=== PATIENT | male | born 1995 | race Caucasian/White ===

== ENCOUNTER 2024-12-18 21:12 | Emergency (ER) | payer OTHER, SELFPAY ==
--- NOTE | ~2024-12-18 | XR_ITS ---
Portable chest x-ray Comparison: None Clinical History: Chest pain Findings: Lungs are clear, without focal consolidation or pleural effusion. Probable COPD. Cardiome diastinal silhouette is unremarkable. Bones and soft tissues are unremarkable. Impression: Clear lungs. COPD. Reviewed, dictated and finalized at location . Impression: Clear lungs. COPD.
--- OUTSIDE RECORDS SUMMARY | 2024-12-18 21:15 | XMS_ITS | Continuity of Care Document ---
Author Name [facility] Organization [facility] Care Team Providers Care Test Driller Name Role Phone [facility] Unavailable Unavailable Problems Combined list of problems from Department of Defense and Veterans Affairs facilities. It does not include entries that were removed or entered in error. Problem Status Onset Date Problem Type Date of Resolution Comments Source Schizophrenia, unspecified Active 01/18/2019 Condition [facility] Schizoaffective disorder Active Condition [facility] CASE MANAGEMENT CONTINUE Active Condition [facility] Mixed obsessional thoughts and acts Active Condition [facility] Major depressive disorder, recurrent, severe with psychotic symptoms Active Condition [facility] Allergies, Adverse Reactions, Alerts Combined list of allergies from Department of Defense and Veterans Affairs facilities. It does not include entries that were removed or entered in error. Substance Category Reaction Severity Reaction type Status Date Reported Comments Source No Known Allergies Drug allergy (disorder) active 9 [place], [place] Immunizations Combined list of available immunizations from the Department [facility] and [facility] facilities. Immunization Series Date Given Administered By Site Reaction Lot Number CVX Code Drug Certified Neurodiagnostic Technologist Status Comments Source COVID-19 (MODERNA), MRNA, LNP-S, PF, 100 MCG/0.5 ML DOSE 2 2020 207 complet ed MOD; [id number]; 1 [facility] COVID-19 (MODERNA), MRNA, LNP-S, PF, 100 MCG/0.5 ML DOSE 1 2020 207 complet ed MOD; [id number]; 1 [facility] TDAP 2019 115 complet ed Right Deltoid [facility] INFLUENZA, UNSPECIFIED FORMULATION 2018 88 complet ed per [facility] L influenza, injectable, quadrivalent, contains preservative 1 2018 [id number] 158 Seqirus (SEQ) complet ed influenza , injectabl e, quadrival ent, contains preservat konstantin DoD Seasonal, trivalent, recombinant, injectable influenza vaccine, preservative free 1 2018 ANGELA ALVES [id number] [facility] (SKB) complet ed Seasonal, trivalent , recombina nt, injectabl e influenza vaccine, preservat konstantin free DoD Seasonal, quadrIvalent, recombinant, injectable influenza vaccine, preservative free 1 2017 ANNAMARIE LYN [id number] 185 Seqirus (SEQ) complet ed Seasonal, quadrIval ent, recombina nt, injectabl e influenza vaccine, preservat konstantin free DoD yellow fever vaccine 1 2017 [id number] Sanofi Pasteur (PMC) complet ed yellow fever vaccine DoD vaccinia (smallpox) vaccine 1 2017 [id number] 75 (JOHN) complet ed vaccinia (smallpox ) vaccine DoD anthrax vaccine 3 2017 ANNAMARIE LYN [id number] 24 [facility] ([place]) complet ed anthrax vaccine DoD typhoid Vi capsular polysaccharid e vaccine 1 2017 ANNAMARIE LYN [id number] Sanofi Pasteur (PMC) complet ed typhoid Vi capsular polysacch aride vaccine DoD Human rabies vaccine from Chicken fibroblast culture 1 2017 ANNAMARIE LYN [id number] 176 [facility] ([facility]) complet ed Human rabies vaccine from Chicken fibroblas t culture DoD rabies vaccine, for intramuscular injection RETIRED CODE 2 2017 NEGRA OLSON P [id number] 18 Vishnuine (SKB) complet ed rabies vaccine, for intramusc ular injection RETIRED CODE DoD [place] Encephalitis vaccine for intramuscular administratio n 2 2017 NEGRA OLSON [id number] 134 [employer] (INT) complet ed [place] Encephali tis vaccine for intramusc ular administr ation DoD rabies vaccine, for intramuscular injection RETIRED CODE 1 2016 NEGRA OLSON [id number] 18 Vishnuine (SKB) complet ed rabies vaccine, for intramusc ular injection RETIRED CODE DoD anthrax vaccine 2 2016 NEGRA OLSON [id number] 24 [facility] ([place]) complet ed anthrax vaccine DoD [place] Encephalitis vaccine for intramuscular administratio n 1 2016 NEGRA OLSON [id number] [address] [facility] Biomedical (INT) complet ed [place] Encephali tis vaccine for intramusc ular administr ation DoD Influenza, injectable, Madin Sibley Canine Kidney, preservative free, quadrivalent 1 2016 [id number] 171 Seqirus (SEQ) comple t ed Influenza , injectabl e, Madin Iris Canine Kidney, preservat konstantin free, quadrival ent DoD influenza, injectable, quadrivalent, contains preservative 1 2015 [id number] 158 Seqirus (SEQ) complet ed influenza , injectabl e, quadrival ent, contains preservat konstantin DoD anthrax vaccine 1 2015 [id number] 24 [facility] ([place]) complet ed anthrax vaccine DoD typhoid Vi capsular polysaccharid e vaccine 1 2015 [id number] 101 Sanofi Pasteur (PMC) complet ed typhoid Vi capsular polysacch aride vaccine DoD hepatitis B vaccine, adult dosage 3 2014 [id number] 43 SmithKline (SKB) complet ed hepatitis B vaccine, adult dosage DoD Influenza, seasonal, injectable, preservative free 1 2014 [id number] 140 Spirus MedicalKline (SKB) complet ed Influenza , seasonal, injectabl e, preservat konstantin free DoD hepatitis B vaccine, pediatric or pediatric/ado lescent dosage 2 2014 [id number] 08 Cerus Corporationine (SKB) complet ed hepatitis B vaccine, pediatric or pediatric /adolesce nt dosage DoD measles, mumps and rubella virus vaccine 1 2014 UNK 03 Unknown (UNK) Not Given measles, mumps and rubella virus vaccine DoD varicella virus vaccine 1 2014 UNK 21 Unknown (UNK) Not Given varicella virus vaccine DoD hepatitis A vaccine, adult dosage 1 2014 UNK 52 Unknown (UNK) Not Given hepatitis A vaccine, adult dosage DoD hepatitis B vaccine, pediatric or pediatric/ado lescent dosage 1 2014 [id number] 08 SmithKline (SKB) complet ed hepatitis B vaccine, pediatric or pediatric /adolesce nt dosage DoD poliovirus vaccine, inactivated 1 2014 [id number] 10 Sanofi Pasteur (PMC) complet ed polioviru s vaccine, inactivat ed DoD meningococcal polysaccharid e (groups A, C, Y and W-135) diphtheria toxoid conjugate vaccine (MCV4P) 1 2014 [id number] 114 Sanofi Pasteur ([facility]) complet ed meningoco ccal polysacch aride (groups A, C, Y and W-135) diphtheri a toxoid conjugate vaccine (MCV4P) DoD tetanus toxoid, reduced diphtheria toxoid, and acellular pertu is vaccine, adsorbed 1 2014 [id number] 115 Sanofi Pasteur (PMC) complet ed tetanus toxoid, reduced diphtheri a toxoid, and acellular pertussis vaccine, adsorbed DoD Influenza, seasonal, injectable, preservative free 1 2014 [id number] 140 Novartis mYwindow Arturo. (NOV) complet ed Influenza , seasonal, injectabl e, preservat konstantin free DoD Adenovirus, type 4 and type 7, live, oral 1 2014 [id number] 143 HealPay (BRR) complet ed Adenoviru s, type 4 and type 7, live, oral DoD Encounters Combined list of: 1) Encounters from Department of Veterans Affairs facilities going backup to the last 18 months, not all VA inpatient encounters are included; 2) Encounters from the Department of Defense facilities going backup to 280 months. Location Location Details Encounter Type Encounter Number Reason For Visit Attending Provider ADM Date DC Date Status Disposition Source JASMIN Downey(IEP Soldiers Initial Entry) OUTPATIENT [id number] Notes Entered by: KERA LOPEZ J 17 Oct 2014 0506 ------- ------- ------- ------- -- [id number] B3 DAY 1 DONTAE REYES 10/17 Released w/o Limitations [facility] JASMIN Elder([place] Initial Entry) JASMIN Downey(IEP Optometry ) OUTPATIENT [id number] LYDIA KEMP 10/17 Released w/o Limitations JASMIN Downey(IEP Optomet ry) [facility] JASMIN Elder(IEP Hearing Conservat ion Exam) OUTPATIENT [id number] JOSIAH COFFEY 10/18 Released w/o Limitations [facility] [place] at[place] Exam) [facility] [place] OUTPATIENT [id number] Notes Entered by: KERA LOPEZ J 19 Oct 2014 0408 ------- ------- ------- ------- -- [id number] B3 3 VALERIE DINEROAlison 10/19 Released w/o Limitations [facility] [place] [facility] [place] OUTPAT[place] [id number] Notes Entered by: Radha MURRIETA 10 Nov 2014 0710 ------- ------- ------- ------- -- KNEES; VICENTE CASAREZ 11/10 Released w/o Limitations [facility] [place] [facility] [place] OUTPAT[place] [id number] Notes Entered by: Radha MURRIETA 24 Nov 2014 0950 ------- ------- ------- ------- -- KNEES. ERIKA SOTO 11/24 Released with Work/Duty Limitations [facility] [place] Er [place] [facility] [place] OUTPATIENT [id number] Notes Entered by: MAGGIE ORTIZ 24 Dec 2014 0502 ------- ------- ------- ------- -- E CO 3-10 DONTAE MILLER 12/24 [facility] [place] [facility] [facility] [facility] [place] [facility] OUTPATIENT [id number] Notes Entered by: WANDA BELLE 25 Jul 2015 0518 ------- ------- ------- ------- -- Hep ALLI SILVA 07/25 Released w/o Limitations [place] [facility] [id number] Notes Entered by: MARIA ELENA ORDAZ 26 Sep 2015 0840 ------- ------- ------- ------- -- Sleep Issues DOROTHY JO 09/26 Sick at Home/Quarter s [place] [facility] [employer] [place] OUTPATIENT [id number] annual ROSE VELASQUEZ 12/16 Released w/o Limitations [facility] [employer] [place] ) [facility] [employer] [place] OUTPATIENT [id number] SAADIA BONILLA 12/23 Released w/o Limitations [facility] [employer] [place] [place] [facility] [employer] [place] [id number] SHARON HERNANDEZ 11/02 Released w/o Limitations [facility] [employer] [place] [facility] [place] OUTPAT[place] [id number] post deploy GINETTE CAMPBELL 11/03 Released w/o Limitations [facility] [employer] [place] [place] [facility] [employer] [place] OUTPATIENT [id number] EMMA SHANKAR 03/10 Released w/o Limitations [facility] [employer] [place] [place] [facility], [place] OUTPATIENT [id number] 2BN:NEGRA PETERSEN P 07/19 Released w/o Limitations [facility] [place]) [facility] [place] OUT[place] [id number] Notes Entered by: NEGRA OLSON 17 Nov 2017 1534 ------- ------- ------- ------- -- 2BN:NEGRA PETERSEN 11/17 [facility]ased w/o Limitations [facility] [place] [place] OUT[place] [id number] 2bn-SLE EP ISSUES CHANELLE ROSENBERG 11/18 Released w/o Limitations [facility] [place]) [facility], [place] [id number] 2bn; ANNAMARIE Leach 01/25 Released w/o Limitations [facility] [place]) [facility], [place] [id number] annual STARR GATES 02/03 Released w/o Limitations [facility] [employer] [place] ) [facility], [place] [id number] Notes Entered by: ANNAMARIE LYN 15 Jun 2018 0803 ------- ------- ------- ------- -- 2bn; ANNAMARIE Leach 06/15 Released w/o Limitations [facility] [place]) [facility], [employer] [place] OUTPATIENT [id number] Notes Entered by: ANNAMARIE LYN T 21 Jun 2018 1459 ------- ------- ------- ------- -- YESSENIA Matthews 06/21 Released w/o Limitations [facility] [employer] [place]) [facility] [place] TELE CONSULT [id number] ANTONIO GREENFIELD Aminta 06/24 [facility] [place]) [facility], [place] AD DIRECT TO [facility] NEVER TRNF TO [facility] [id number] ABSENT, SICK 07/19 RETURNED TO DUTY [facility] [place] [facility] [employer] [place], [place] OUTPATIENT [id number] Notes Entered by: ANNAMARIE LYN 03 Aug 2018 1011 ------- ------- ------- ------- -- 2bn; Psych CHANELLE ROSENBERG 08/03 Released w/o Limitations [facility] [place]) [place] [address] AD DIRECT TO [facility] NEVER TRNF TO [facility] [id number] HIWOT SYLVESTER 08/27 RETURNED TO DUTY [facility] [place] [address] [facility] DIRECT TO [facility] FROM OTHER THAN ER OR APU [id number] MICHELINE CASTILLO 10/26 RETURNED TO DUTY [facility] INPATIENT [id number] ANGELA Olivo 10/27 Inpatient- Still a Patient [facility]( Immuniz ation Clinic Be) [facility](In t Med CL [facility] Medical Home BE) OUTPATIENT [id number] [facility] FOR PLASTIC SURGERY RODOLFO MACIEL 11/28 Released w/o Limitations [facility]( Int Med CL [facility] Medical Home BE) [facility] t Med [facility]) OUTPATIENT [id number] [facility] FOR BREAST CARE RODOLFO MACIEL 12/01 Released w/o Limitations [facility]( Int Med CL D Medical Home BE) [facility](Br east Care [place]) OUTPATIENT [id number] Gynecom astia, pl eval/tr eat AMBROSIO, KERRY TURZA 12/06 Released w/o Limitations [facility]( Breast Care [place] [facility]) [facility](EE G Clinic [place]) OUTPATIENT [id number] proc/ee g JUNI EDEN 12/07 Released w/o Limitations [facility]( EEG Clinic [place] [facility]) [facility](Ne urology Clinic [place]) OUTPATIENT [id number] STEVEN APONTE 12/07 Released w/o Limitations [facility]( Neurolo gy Clinic [facility] [facility]) [facility](In tegrative Hlth & Well BE) OUTPATIENT [id number] pcs group TRINITY SHAW 12/15 Released w/o Limitations [facility]( Integra tive Hlth & Well BE) [facility](Nu trition Clinic [place]) OUTPATIENT [id number] BEHAVIO RAL NUTRITI ON DOMINGA CARR 12/23 Released w/o Limitations [facility]( Nutriti on Clinic [place]) [place]) [place] [id number] 2BN-dis charge follow up PRESLEY ZAMARRIPA 01/04 Released [place] Limitations [place]) OUTPATIENT [id number] Notes Entered by: MEEK MORILLO 19 Jan 2019 1535 ------- ------- ------- ------- -- MEB Review SANJAY MORILLO BAKARI 01/19 Released w/o Limitations [facility] [place]) [facility] [place] talker Clinic) TELE CONSULT [id number] Notes Entered by: KATHY ZAMARRIPA 23 Jan 2019 1558 ------- ------- ------- ------- -- MEB PRESLEY Cho 01/23 [facility] [employer] [place] [facility], [place] Providers ) OUTPATIENT [id number] [place] AVELINO FELIZ 02/02 Released with Work/Duty Limitations [facility] [employer] [place] [facility], [place]([facility] Client Support Professional) OUTPATIENT [id number] Notes Entered by: OLESYA NJ 13 Feb 2019 1008 ------- ------- ------- ------- -- initial risk assessm ent OLESYA NJ 02/13 Released with Work/Duty Limitations [facility] [employer] [place] Client [place] ) [facility], [place]([facility]) OUTPATIENT [id number] PCM OLESYA SANTIZO 02/13 Released w/o Limitations [facility] [employer] [place] ior [facility]) [facility], [place]([facility] Client Support Professional) OUTPATIENT [id number] Notes Entered by: OLESYA NJ 13 Feb 2019 1128 ------- ------- ------- ------- -- initial intake with NCM OLESYA NJ 02/13 Released with Work/Duty Limitations [facility] [place] Client Support Professional ) [facility] [employer] [place] Client [place] OUT[place] [id number] weekly follow up with NCOLESYA BEATTY 02/14 Released with Work/Duty Limitations [facility] [employer] [place] [facility] [employer] [place] [id number] RA/NOM/ COMPANY Tom GREGOR RAMIREZINE NOEL 02/17 Released with Work/Duty Limitations [facility] [employer] [place] [facility] [employer] [place] OUT[place] [id number] Notes Entered by: Radha WIGGINS 17 Feb 2019 1449 ------- ------- ------- ------- -- WTU NCAminta berrios Inspect HUSAM Up 02/17 Released with Work/Duty Limitations [facility] [employer] [facility] [employer] [place] [id number] OT Intake YAMEL BAER 02/22 Released w/o Limitations [facility] [employer] [facility] [employer] [place] [id number] weekly follow up with OLESYA RYAN 02/22 Released with Work/Duty Limitations [facility] [employer] [place] [facility] [employer] [place] [id number] OT [facility] MARKOS GARDINER 02/27 Released w/o Limitations [facility] [employer] [facility] [employer] [place] [id number] INTAKE 02/13/19 HERMILA VALENCIA I 02/28 Released w/o Limitations [facility] [employer] [place] [facility] [employer] [place] TELE CONSULT [id number] Notes Entered by: OLESYA NJ 01 Mar 2019 1043 ------- ------- ------- ------- -- medicat ion refill needed OLESYA NJ 03/01 Referred for Appointment [facility] [employer] [place] [facility] [employer] [place] [id number] MED BRIEF HERMILA VALENCIA I 03/02 Released w/o Limitations [facility] [employer] [place] [facility] [employer] [place] [id number] HR APPT HERMILA VALENCIA I 03/06 Released w/o Limitations [facility] [employer] [place] [facility] [employer] [place] [id number] Notes Entered by: KAMRAN HERNANDEZ 06 Mar 2019 1352 ------- ------- ------- ------- -- SARA intake DENA HERNANDEZ 03/06 Released with Work/Duty Limitations [facility] [employer] [place] [facility] [employer] [place] [id number] Notes Entered by: OLESYA NJ 09 Mar 2019 0702 ------- ------- ------- ------- -- FTR at 1330 OLESYA NJ 03/09 Released with Work/Duty Limitations [facility] [employer] [place] [facility] [employer] [place] [id number] weekly follow up with NCM OLESYA NJ 03/09 Released with Work/Duty Limitations [facility] [employer] [place] [facility] [employer] [place] [id number] HR APPT HERMILA VALENCIA I 03/10 Released w/o Limitations [facility] [employer] [place] [facility] [employer] [place] [id number] MONTHLY APPT JAMES CHUCKELIAS COHEN 03/15 Released with Work/Duty Limitations [facility] [employer] [facility] [employer] [place] [id number] WTU NCM WEEKLY F/U DUGYON, BRAEDEN D 03/17 Released with Work/Duty Limitations [facility] [employer] [facility] [employer] [place] [id number] WEEKLY HERMILA VALENCIA I 03/21 Released w/o Limitations [facility] [employer] [place] [facility] [employer] [place]) [place] [id number] WTU NCM WEEKLY F/U DUGYON, BRAEDEN D 03/23 Released with Work/Duty Limitations [facility] [employer] [place] [facility] [employer] [place]) [place] [id number] WTU NCM WEEKLY F/U DUGYON, BRAEDEN D 03/29 Released with Work/Duty Limitations [facility] [employer] [place] [facility] [employer] [place]) [place] [id number] WTU NCM WEEKLY F/U DUGYON, BRAEDEN D 04/04 Released with Work/Duty Limitations [facility] [employer] [place] [facility] [employer] [place] [id number] MONTHLY APPT CHUCK RAMIREZ 04/13 Released w/o Limitations [facility] [employer] [place] [facility] [employer] [place] [id number] XWX WTB NCM GINA XIONG 04/13 Released with Work/Duty Limitations [facility] [employer] [place] [facility] [employer] [place]) [place] [id number] WTU NCM WEEKLY F/U DUGYON, BRAEDEN D 04/20 Released with Work/Duty Limitations [facility] [employer] [place] [facility] [employer] [place]) [place] [id number] WTU NCM WEEKLY F/U DUGYON, BRAEDEN D 04/27 Released with Work/Duty Limitations [facility] [employer] [place] [facility] [employer] [place] [id number] HR APPT HERMILA VALENCIA I 04/28 Released w/o Limitations [facility] [employer] [place] [facility] [employer] [place] [id number] WTU NCM WEEKLY F/U DUGYON, BRAEDEN D 05/04 Released with Work/Duty Limitations [facility] [employer] [place] [facility] [employer] [place] [id number] HR APPT HERMILA VALENCIA I 05/04 Released w/o Limitations [facility] [employer] [place] [place] [facility] [employer] [place] [id number] Notes Entered by: FARHAT MEDELLIN 08 May 2019 1448 ------- ------- ------- ------- -- B/P Check CHUCK RAMIREZ 05/08 Released w/o Limitations [facility] [employer] [place] [facility] [employer] [place]) OUT[place] [id number] WTU NCM WEEKLY F/U BRAEDEN NUÑEZ D 05/11 Released with Work/Duty Limitations [facility] [employer] [place] [facility] [employer] [place] [id number] HR APPT HERMILA VALENCIA I 05/12 Released w/o Limitations [facility] [employer] [place] [facility] [employer] [place] [id number] MONTHLY CHUCK RAMIREZ 05/17 Released with Work/Duty Limitations [facility] [employer] [place] [place] [facility] [employer] [place] OUTPATIENT [id number] WTU NCM WEEKLY F/U BRAEDEN NUÑEZ D 05/18 Released with Work/Duty Limitations [facility], [employer] [facility], [employer] [place] TELE CONSULT [id number] Notes Entered by: Sugar RAMIREZ 23 May 2019 1321 ------- ------- ------- ------- -- SM with psychia tric symptom s c/w schizop hrenia request ing imaging , CHUCK RAMIREZ 05/23 [facility], [employer] [facility]) [facility], [employer] [place] OUTPATIENT [id number] WTU NCM WEEKLY F/U DUGYON, BRAEDEN D 05/25 Released with Work/Duty Limitations [facility], [employer] [facility], [employer] [place] OUTPATIENT [id number] WTU NCM WEEKLY F/U DUGYON, BRAEDEN D 05/29 Released with Work/Duty Limitations [facility], [employer] [facility], [employer] [place] OUTPATIENT [id number] MONTHLY APPT CHUCK RAMIREZ 06/01 Released with Work/Duty Limitations [facility], [employer] [facility], [employer] [place] OUTPATIENT [id number] WTU NCM WEEKLY F/U DUGYON, BRAEDEN D 06/06 Released with Work/Duty Limitations [facility], [employer] [facility], [employer] [place] OUTPATIENT [id number] WTU NCM WEEKLY F/U DUGYON, BRAEDEN D 06/12 Released with Work/Duty Limitations [facility], [employer] [facility], [employer] [place] OUTPATIENT [id number] WTU NCM WEEKLY F/U DUGYON, BRAEDEN D 06/19 Released with Work/Duty Limitations [facility], [employer] [facility], [employer] [place] OUTPATIENT [id number] WTU NCM WEEKLY F/U DUGYON, BRAEDEN D 06/27 Released with Work/Duty Limitations [facility], [employer] [facility], [employer] [place] OUTPATIENT [id number] WTU NCM WEEKLY F/U BRAEDEN NUÑEZ 07/04 Released with Work/Duty Limitations [facility], [employer] [facility], [employer] [place] [id number] Notes Entered by: KAMRAN HERNANDEZ 04 Jul 2019 1509 ------- ------- ------- ------- -- SARA re-DENA Olivier 07/04 Released with Work/Duty Limitations [facility], [employer] [facility], [employer] [place] [id number] Notes Entered by: FARHAT MEDELLIN 10 Jul 2019 0955 ------- ------- ------- ------- -- Monthly OLESYA VASQUEZ 07/10 Released w/o Limitations [facility], [employer] [facility], [employer] [place] [id number] WTU NCM WEEKLY F/U BRAEDEN NUÑEZ 07/11 Released with Work/Duty Limitations [facility], [employer] [facility], [employer] [place] [id number] HR APPT HERMILA VALENCIA I 07/12 Released w/o Limitations [facility], [employer] [place] [facility], [employer] [place] [id number] annual OLGA PEREZ 07/12 Released w/o Limitations [facility], [employer] [facility], [employer] [place] [id number] HR APPT HERMILA VALENCIA John 07/14 Released w/o Limitations [facility], [employer] [facility], [employer] [place]) OUT[place] [id number] NCM [facility] 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 SHAYNE OSORIO GRECIA 07/14 Released with Work/Duty Limitations [facility], [employer] [facility], [employer] [place] OUTPATIENT [id number] WTU NCM WEEKLY F/U DUGYON, BRAEDEN D 07/17 Released with Work/Duty Limitations [facility], [employer] [facility], [employer] [place] OUTPATIENT [id number] WTU NCM WEEKLY F/U DUGYON, BRAEDEN D 07/24 Released with Work/Duty Limitations [facility], [employer] [facility], [employer] [place] [id number] WTU NCM WEEKLY F/U DUGYON, BRAEDEN D 07/31 Released with Work/Duty Limitations [facility], [employer] [facility] [employer] [place] OUTPATIENT [id number] Notes Entered by: FARHAT MEDELLIN 07 Aug 2019 1232 ------- ------- ------- ------- -- Monthly OLESYA VASQUEZ 08/07 Released w/o Limitations [facility], [employer] [facility], [employer] [place] OUTPATIENT [id number] WTU NCM WEEKLY F/U DUGYON, BRAEDEN D 08/09 Released with Work/Duty Limitations [facility], [employer] [facility] Outpatient Encounter [id number] 12/05 [facility] Procedures Combined list of: 1) Procedures from Department of [facility] Affairs facilities going back up to thelast 18 months, not all VA non-surgical procedures are included; 2) All procedures from the Department of Defense facilities. Procedure Procedure Type Code Date Ethel Gilbert e Coordinated care fee, maintenance rate 019 MICHELLE PARK DoD Case Management, each 15 minutes 019 MICHELLE PARK AT# 8x2 Tx team update DoD Coordinated care fee, maintenance rate 019 MICHELLE PARK DoD Case Management, each 15 minutes 019 MICHELLE PARK AT#11 F/U single service In-pt Update DoD Coordinated care fee, maintenance rate 019 MICHELLE PARK Case Management, each 15 minutes 019 MICHELLE PARK AT#4 In-Pt F/U weekly update DoD Coordinated care fee, maintenance rate 019 MICHELLE PARK DoD Coordinated care fee, maintenance rate 019 MICHELLE PARK DoD Case Management, each 15 minutes 019 MICHELLE PARK AT# 7 Multi-D conf Phone/con; AT# 188 VMM left DoD Case Management, each 15 minutes 019 MICHELLE PARK AT# 11 F/U Single Service In-Patient update DoD Coordinated care fee, maintenance rate 019 MICHELLE PARK DoD Case Management, each 15 minutes 019 MICHELLE PARK AT# 8x2 Tx team update DoD Coordinated care fee, maintenance rate 019 MICHELLE PARK DoD Case Management, each 15 minutes 019 MICHELLE PARK AT# 11 F/U Single service [facility] [place]Note 2] Update DoD Coordinated care fee, maintenance rate 019 MICHELLE PARK DoD Case Management, each 15 minutes 019 MICHELLE PARK AT# 11 F/U single service In-Pt DoD Coordinated care fee, maintenance rate 019 MICHELLE PARK Case Management, each 15 minutes 019 MICHELLE PARK AT#11 f/u single service; AT#17 Pt teaching complex Hospital admission Laine Brentwood AT#9 Coordination of Services [facility] Coordinated care fee, maintenance rate 019 MICHELLE PARK Case Management, each 15 minutes 018 MICHELLE PARK AT# 10 Coordination of Complex Service L.R. Admission packet; AT# 18 Email submitted Referrals FC-55 Ursula Coordinated care fee, maintenance rate 018 MICHELLE PARK DoD Coordinated care fee, maintenance rate 018 JOYCE TORRES Case Management, each 15 minutes 018 MICHELLE PARK AT# 8x2 Tx team update Ursula Coordinated care fee, maintenance rate 018 MICHELLE PARK Case Management, each 15 minutes 018 MICHELLE PARK AT# 8x2 Tx team update; AT# 9 Coordination of Psychiatry Intake appt DoD Coordinated care fee, maintenance rate 018 MICHELLE PARK [facility] Psychiatric Evaluation Comprehensive Examination Psychiatric Evaluation Comprehensive Examination [id number] BLAYNE MORALES Case Management, each 15 minutes 018 MICHELLE PARK AT#9 Coordination of Service Hosp D/C appt; AT# 11 F/U In-Pt update [facility] Coordinated care fee, maintenance rate 018 MICHELLE PARK [facility] Coordinated care fee, maintenance rate 018 MICHELLE PARK Case Management, each 15 minutes 018 MICHELLE PARK AT#9 Coordination of Service In-Pt Admission [facility] DoD Immunization Administration One Vaccine Immunization Administration One Vaccine 44909 018 ANNAMARIE LYN [facility] Threshold Audiogram (Pure Tone) Automated Threshold Audiogram (Pure Tone) Automated 0208T 018 STARR GATES DoD Immunization Administration One Vaccine Immunization Administration One Vaccine 84744 018 ANNAMARIE LYN [facility] Immunization Administration Each Additional Vaccine Immunization Administration Each Additional Vaccine 76990 06/05/2 018 EBONIMARVNahomy OLSON [facility] Typhoid Vaccine Vi Capsular Polysaccharide, For Intramus Use Typhoid Vaccine Vi Capsular Polysaccharide, For Intramus Use 56313 018 EBONI ANNAMARIE OLSON Typhoid, ViCPs; Series #: 1; .5 mL; IM; Left Arm; Mfg: Sanof[employer] Pasteur; Lot: [id number]; VIS given (Abdirashid: 01/19/12). [facility] Rabies Vaccine For Intramuscular Use Rabies Vaccine For Intramuscular Use 34147 018 RESHMAANNAMARIE QUINTERO WESLEY Rabies - IM fibroblast culture; Series #: 1; 1.0 mL; IM; Left Arm; Mfg: Legend3D; Lot: [id number]; VIS given (Abdirashid: 05/28/2009). [facility] Psychiatric Evaluation Comprehensive Examination Psychiatric Evaluation Comprehensive Examination 71058 018 BLAYNE MORALES [facility] Rabies Vaccine For Intramuscular Use Rabies Vaccine For Intramuscular Use 018 NEGRA OLSON Rabies - Intramuscular; Series #: 2; 1.0 mL; IM; Left Arm; Mfg: Legend3D; Lot: [id number]; VIS given (Abdirashid: 05/28/2009). [facility] Immunization Administration One Vaccine Immunization Administration One Vaccine NEGRA OLSON [facility] Immunization Administration Each Additional Vaccine Immunization Administration Each Additional Vaccine 018 NEGRA OLSON [facility] Vaccines Viral [place] Islander Encephalitis Inactivated, Intramuscular Vaccines Viral [place]er Encephalitis Inactivated, Intramuscular 46395 018 NEGRA OLSON [place] Encephalitis IM; Series #: 2; .5 mL; IM; Left Arm; Mfg: GROUNDFLOOR; Lot: [id number]; VIS given (Abdirashid: 09/15/13). [facility] Rabies Vaccine For Intramuscular Use Rabies Vaccine For Intramuscular Use 017 NEGRA OLSON Rabies - Intramuscular; Series #: 1; 1.0 mL; IM; Right Arm; g: Legend3D; Lot: [id number]; VIS given (Abdirashid: 05/28/2009). [facility] Vaccines Viral [place] Islander Encephalitis Inactivated, Intramuscular Vaccines Viral [place]er Encephalitis Inactivated, Intramuscular 34892 017 NEGRA OLSON [place] Encephalitis IM; Series #: 1; .5 mL; IM; Left Arm; [facility]: GROUNDFLOOR; Lot: [id number]; VIS given (Abdirashid: 09/15/13). DoD Immunization Administration One Vaccine Immunization Administration One Vaccine 03012 017 NEGRA OLSON [facility] Immunization Administration Each Additional Vaccine Immunization Administration Each Additional Vaccine 36492 017 NEGRA OLSON [facility] Threshold Audiogram (Pure Tone) Automated Threshold Audiogram (Pure Tone) Automated 0208T 017 GINETTE CAMPBELL [facility] Threshold Audiogram (Pure Tone) Automated Threshold Audiogram (Pure Tone) Automated 0208T 016 ROSE VELASQUEZ [facility] Immunization Administration One Vaccine Immunization Administration One Vaccine 22665 015 FRITZ ARMENTA [facility] Hepatitis B Vaccine (Active); 20 Years and Above Hepatitis B Vaccine (Active); 20 Years and Above 58458 015 FRITZ ARMENTA [facility] Immunization Administration One Vaccine Immunization Administration One Vaccine 71798 015 DONTAE REYES [facility] Hep B Vaccine (Active); Adolescent (2 Dose Schedule) Hep B Vaccine (Active); Adolescent (2 Dose Schedule) 46180 015 DONTAE REYES [facility] Orthopedic shoe addition, insole, rubber 015 VICENTE HARKINS [facility] Vaccines Adenovirus Type 7 Live, For Oral Use Vaccines Adenovirus Type 7 Live, For Oral Use 94118 [address] [facility] Vaccines Adenovirus Type 4 Live, For Oral Use Vaccines Adenovirus Type 4 Live, For Oral Use [address]11 [address] Influenza Split Virus Vaccine Age 3+ Years Intramuscular [address] Supervised Injection Intramuscular Antibiotic Supervised Injection Intramuscular Antibiotic [address] [facility] Vaccines Viral Polio, Inactivated (Salk) Vaccines Viral Polio, Inactivated (Salk) 11959 [address] Tdap Vaccine Tdap Vaccine 71450 [address] Hep B Vaccine (Active); Adolescent (2 Dose Schedule) Hep B Vaccine (Active); Adolescent (2 Dose Schedule) [address] [facility] Immunization Administration Each Additional Vaccine Immunization Administration Each Additional Vaccine [address] [facility] Immunization Administration One Vaccine Immunization Administration One Vaccine [address] [facility] Meningococcal Conjugate Vaccine Tetravalent (A C Y W-135) [place] FLAKITO [facility] Audiometry Group Testing Audiometry Group Testing 88193 015 ERLINDA JOSIAH L [facility] Venipuncture Venipuncture 91401 DONTAE REYES [facility] Screening Test Of Visual Acuity, Quantitative, Bilateral Screening Test Of Visual Acuity, Quantitative, Bilateral 53180 015 EAMON COPELAND [facility] Med Management By Pharmacist Initial 15 Min New Patient Med Management By Pharmacist Initial 15 Min New Patient [id number] TONJA JONES [facility] Psychiat Therapy Indiv Appr 20-30 Min W/ Med Eval Managemt Psychiat Therapy Indiv Appr 20-30 Min W/ Med Eval Managemt [id number] BALTA ROCKWELL [facility] Case Management, each 15 minutes MICHELLE PARK AT# 7 Multi-D Conf Provider consult; AT# 10 Coordination Complex service; AT# 16 Teaching/Infor mation update [facility] Coordinated care fee, maintenance rate MICHELLE PARK [facility] Psychiatric Therapy Group (Interactive) Psychiatric Therapy Group (Interactive) [id number] BALTA ROCKWELL [facility] 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, tin flipper BALTA ROCKWELL [facility] Non-Physician Phone Call To Patient/Provider Brief (5-10min) Non-Physician Phone Call To Patient/Provider Brief (5-10min) 19823 SADAF BOURNE [facility] Psychiatric Therapy Preparation of Psychiatric Status Report Psychiatric Therapy Preparation of Psychiatric Status Report 54109 LA ZURITA [facility] Medical Nutrition Therapy Group (2 or More Individual(s)) Medical Nutrition Therapy Group (2 or More Individual(s)) [id number] [id number] LILLY DOMINGA CARLO DoD Psychiat Therapy Indiv Appr 20-30 Min W/ Med Eval Managemt Psychiat Therapy Indiv Appr 20-30 Min W/ Med Eval Managemt 22104 DUANE ZURITAA Moises DoD 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, tin flipper DEREK ZURITATHIA T DoD Psychiatric Therapy Individual Approximately 45-50 Minutes Psychiatric Therapy Individual Approximately 45-50 Minutes [id number] 019 DEREK ZURITATHIA T DoD Psychiatric Therapy Individual Approximately 45-50 Minutes Psychiatric Therapy Individual Approximately 45-50 Minutes [id number] DEREK ZURITATHIA T DoD 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, tin flipper DEREK ZURITATHIA T DoD Psychiat Therapy Indiv Appr 20-30 Min W/ Med Eval Managemt Psychiat Therapy Indiv Appr 20-30 Min W/ Med Eval Managemt 07238 BALTA ROCKWELL [facility] 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, tin flipper DUANE ZURITAA Moises Vergara 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, tin flipper DEREK ZURITATHIA Moises Vergara Psychiatric Evaluation Review of Records and Reports Psychiatric Evaluation Review of Records and Reports 37463 DUANE ZURITAA Moises DoD Psychiatric Therapy Preparation of Psychiatric Status Report Psychiatric Therapy Preparation of Psychiatric Status Report 76619 DUANE ZURITAA Moises Vergara Psychiat Therapy Indiv Appr 20-30 Min W/ Med Eval Managemt Psychiat Therapy Indiv Appr 20-30 Min W/ Med Eval Managemt 27935 DEREK ZURITATHIA Moises DoD Psychiatric Therapy Individual Approximately 45-50 Minutes Psychiatric Therapy Individual Approximately 45-50 Minutes 17405 DUANE ZURITAA Moises DoD 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, tin flipper DEREK ZURITATHIA Moises DoD Coordinated care fee, maintenance rate MICHELLE PARK DoD Case Management, each 15 minutes MICHELLE PARK AT# 7 Multi-D Conf DoD Psychiatric Therapy Individual Approximately 45-50 Minutes Psychiatric Therapy Individual Approximately 45-50 Minutes 90819 MARY CASTELLANO [facility] 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, tin flipper LA ZURITA [facility] Case Management, each 15 minutes MICHELLE PARK AT# 8 x2 Tx team update, AT# 18 VMM left [facility] Coordinated care fee, maintenance rate MICHELLE PARK [facility] Psychiat Therapy Indiv Appr 20-30 Min W/ Med Eval Managemt Psychiat Therapy Indiv Appr 20-30 Min W/ Med Eval Managemt 40037 BALTA ROCKWELL [facility] 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, tin flipper LA ZURITA [facility] Psychiat Therapy Indiv Appr 20-30 Min W/ Med Eval Managemt Psychiat Therapy Indiv Appr 20-30 Min W/ Med Eval Managemt 33310 BALTA ROCKWELL [facility] 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, tin flipper LA ZURITA [facility] Psychiatric Therapy Group (Interview) Psychiatric Therapy Group (Interview) 02324 BALTA ROCKWELL [facility] Psychiatric Evaluation Review of Records and Reports Psychiatric Evaluation Review of Records and Reports 64793 BALTA ROCKWELL [facility] Psychiatric Therapy Preparation of Psychiatric Status Report Psychiatric Therapy Preparation of Psychiatric Status Report 80391 BALTA ROCKWELL [facility] 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, tin flipper LA ZURITA [facility] Psychiatric Therapy Individual Approximately 20-30 Minutes Psychiatric Therapy Individual Approximately 20-30 Minutes 93548 LA ZURITA [facility] EEG Technique Exam Recording Awake And Drowsy EEG Technique Exam Recording Awake And Drowsy 82038 JUNI EDEN [facility] Case Management, each 15 minutes MICHELLE PARK AT# 8 x2 Tx team update [facility] Coordinated care fee, maintenance rate MICHELLE PARK [facility] Case Management, each 15 minutes YOVANNY TOUSSAINT Contact with Provider 2 = 30 minutes, Contact with [facility] Jose Solis 1 = 15 minutes. 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, tin flipper 019 YUDITH, LA T DoD Psych Ther Indiv Interact Appr 45-50 Min W/ Med Eval Manage Psych Ther Indiv Interact Appr 45-50 Min W/ Med Eval Manage 27137 019 BALTA ROCKWELL [facility] 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, tin flipper 019 DEREK ZURITATHIA T DoD 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, tin flipper 019 YUDITH, LA T DoD Psychiat Therapy Indiv Appr 20-30 Min W/ Med Eval Managemt Psychiat Therapy Indiv Appr 20-30 Min W/ Med Eval Managemt [id number] 019 BALTA ROCKWELL [facility] Psychiatric Evaluation Review of Records and Reports Psychiatric Evaluation Review of Records and Reports 21714 019 BALTA ROCKWELL [facility] 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, tin flipper 019 YUDITH, LA T DoD 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, tin flipper 019 YUDITH LA T DoD 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, tin flipper 019 YUDITH, LA T DoD Psychiat Therapy Indiv Appr 20-30 Min W/ Med Eval Managemt Psychiat Therapy Indiv Appr 20-30 Min W/ Med Eval Managemt 87603 019 BALTA ROCKWELL [facility] Psychiatric Therapy Individual Approximately 20-30 Minutes Psychiatric Therapy Individual Approximately 20-30 Minutes [id number] 019 DEREK ZURITATHIA T DoD 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, tin flipper 019 DEREK ZURITATHIA T DoD Psychiatric Therapy Individual Approximately 20-30 Minutes Psychiatric Therapy Individual Approximately 20-30 Minutes [id number] 019 DEREK ZURITATHIA T DoD Psychiatric Therapy Group (Interview) Psychiatric Therapy Group (Interview) [id number] 019 BALTA ROCKWELL [facility] Psychiatric Evaluation Review of Records and Reports Psychiatric Evaluation Review of Records and Reports 73097 019 DUANE ZURITAA Moises [facility] Psychiatric Evaluation Comprehensive Examination Psychiatric Evaluation Comprehensive Examination 85274 019 BALTA ROCKWELL DoD Case Management, each 15 minutes 019 YOVANNY TOUSSAINT The patient has been [facility] from [facility]. The patient will be transferred to [facility] after completing PCS at . Command Mathematical Engineering Technician : TSGT Eran Beard/ [phone]. This NCM will discharge and end tracking of this patient as patient has been assigned [facility] Nurse Client Support Professional Client Support Professional, RN, /JI PEREZ. Transferred and discharge from Tracking 4 = 60 minutes . [facility] Coordinated care fee, maintenance rate 019 YOVANNY TOUSSAINT DoD Case Management, each 15 minutes 019 MICHELLE PARK AT# 4 In-Patient f/u; AT# 9 Coordination of [facility] services [facility] Coordinated care fee, maintenance rate 019 MICHELLE PARK DoD Case Management, each 15 minutes 019 YOVANNY TOUSSAINT Review of [facility] A patient chart 2 = 30 minutes Inpt/FU = 4, Non-contact patient = 2 (total = 8) DoD Case Management, each 15 minutes 019 MICHELLE PARK AT# 7 Multi-D Conf DoD Coordinated care fee, maintenance rate 019 MICHELLE PARK DoD Case Management, each 15 minutes 019 MICHELLE PARK AT# 8x2 Tx team update [facility] Case Management, each 15 minutes 019 YOVANNY TOUSSAINT FU = 4, Non-contact patient = 2 (total = 6) DoD Case Management, each 15 minutes 019 MICHELLE PARK AT# 8x2 Tx team update [facility] Coordinated care fee, maintenance rate 019 MICHELLE PARK DoD Case Management, each 15 minutes 019 YOVANNY TOUSSAINT Attended 7 [facility] huddle 3 = 45 minutes, [facility] Chart Review 2 = 30 minutes. TOTAL: 5 = 75 minutes DoD Immunization Administration One Vaccine Immunization Administration One Vaccine 39032 019 ANGELA ALVES DoD Case Management, each 15 minutes 019 AVELINO CARMONA [facility] Coordinated care fee, maintenance rate 019 MICHELLE PARK DoD Case Management, each 15 minutes 019 MICHELLE PARK AT# 8 x2 Tx team update DoD Case Management, each 15 minutes 019 RANI POLANCO I Per [facility] Acuity Calculator #7, 9 DoD Case Management, each 15 minutes 019 MICHELLE PARK AT# 7 Multi-D conf; AT#10 Coordination of complex service; AT# 18 Phoncon w/ Providers; Care Coalition provider DoD Coordinated care fee, maintenance rate 019 MICHELLE PARK DoD Coordinated care fee, maintenance rate 019 MICHELLE PARK DoD Case Management, each 15 minutes 019 MICHELLE PARK AT# 11 In-pt Update; AT# 7 Multi D Provider conf DoD Case Management, each 15 minutes 019 MICHELLE PARK AT# 7 Multi-D Conf Phoncon; AT# 11 F/U single service DoD Coordinated care fee, maintenance rate 019 MICHELLE PARK DoD Case Management, each 15 minutes 019 MICHELLE PARK AT# 8 x2 Tx team update DoD Case Management, each 15 minutes 019 MICHELLE PARK AT# 7 Multi-D Conference Consult to [facility] DoD Case Management, each 15 minutes 019 MICHELLE PARK AT#4 In-Pt Update DoD Case Management, each 15 minutes MICHELLE PARK AT# 2: Targeted Assessment; AT#5: F/U Nurse Care Plan; AT#11: F/U single Service; AT# 16: Pt Teaching DoD Coordinated care fee, risk adjusted maintenance BRAEDEN NUÑEZ DoD Case Management, each 15 minutes BRAEDEN NUÑEZ AT: 19; F2F DoD Social Work Individual Outpatient Counseling 20-30 Minutes Social Work Individual Outpatient Counseling 20-30 Minutes [id number] ARIEL HERNANDEZ DoD Case Management, each 15 minutes GINA XIONG acuity calculator: 2, 9, 11, 13, 16 DoD Coordinated care fee, risk adjusted maintenance, Level 3 MICHELLE PARK DoD Case Management, each 15 minutes MICHELLE PARK AT# 2 Targeted Assessment; AT# 11 F/U single service; AT# 16 Pt teaching DoD Case Management, each 15 minutes BRAEDEN NUÑEZ AT: 7, 19; F2F [facility] Health And Behavior Intervention, Each 15 Minutes Individual Health And Behavior Intervention, Each 15 Minutes Individual [id number] JACLYN DOSS [facility] Coordinated care fee, maintenance rate BRAEDEN NUÑEZ DoD Case Management, each 15 minutes BRAEDEN NUÑEZ D AT: 8, 9, 16, 19; [facility] Med Management By Pharmacist Initial 15 Min Estab Patient Med Management By Pharmacist Initial 15 Min Estab Patient [id number] HERMILA VALENCIA I [id number]; 24 minutes DoD Medication Management By Pharmacist Each Additional 15 Min Medication Management By Pharmacist Each Additional 15 Min [id number] HERMILA VALENCIA I DoD Case Management, each 15 minutes BRAEDEN NUÑEZ AT: 8, 11, 16, 19; [address] Social Work Individual Outpatient Counseling 45-50 Minutes Social Work Individual Outpatient Counseling 45-50 Minutes [id number] SHAYNE HENNESSY L DoD Case Management, each 15 minutes BRAEDEN NUÑEZ D AT: 8(x2), 9, 19; F2F [facility] Health And Behav A e mt Each 15 Min Initial A e ment Health And Behav Assessmt Each 15 Min Initial Assessment [id number] OLESYA ARREOLA DoD Med Management By Pharmacist Initial 15 Min Estab Patient Med Management By Pharmacist Initial 15 Min Estab Patient [id number] JONES I [phone]; 15 minutes DoD Med Management By Pharmacist Initial 15 Min Estab Patient Med Management By Pharmacist Initial 15 Min Estab Patient [id number] HERMILA VALENCIA I [phone]; 23 minutes DoD Case Management, each 15 minutes MICHELLE PARK AT# 2 Targeted Assessment; AT# 11 F/U single service; AT# 16 Patient teaching DoD Case Management, each 15 minutes BRAEDEN NUÑEZ D AT: 7, 8, 19; F2F [facility] Health And Behav A e mt Each 15 Min Mame e ment Health And Behav Assessmt Each 15 Min Reassessment 11442 JACLYN DOSS DoD Case Management, each 15 minutes BRAEDEN NUÑEZ D AT: 16, 19; [facility] Case Management, each 15 minutes BRAEDEN NUÑEZ D AT: 8, 9, 19; [address] Case Management, each 15 minutes MICHELLE PARK AT# 2 Targeted Assessment; AT# 5 Care Plan update/review; AT# 11 f/u single service; AT# 16 Patient teaching [facility] Case Management, each 15 minutes BRAEDEN NUÑEZ AT: 11, 19; F2F [facility] Physical Medicine Physical Therapy Re-Evaluation Physical Medicine Physical Therapy Re-Evaluation [id number] DENA HERNANDEZ [facility] Physical Therapy: ___ Se ion Segments, 15 Minutes Each Physical Therapy: ___ Session Segments, 15 Minutes Each [id number] DENA HERNANDEZ [facility] Case Management, each 15 minutes BRAEDEN NUÑEZ AT: 9, 19; F2F [facility] Case Management, each 15 minutes BRAEDEN NUÑEZ AT: 8, 12, 19; F2F [facility] Threshold Audiogram (Pure Tone) Automated Threshold Audiogram (Pure Tone) Automated [id number] OLGA PEREZ [facility] Case Management, each 15 minutes MICHELLE PARK AT# 11 F/U single Service; AT# 16 Pt teaching [facility] Case Management, each 15 minutes SHAYNE HAIDER AT: 3X4 DoD Med Management By Pharmacist Initial 15 Min Estab Patient Med Management By Pharmacist Initial 15 Min Estab Patient [id number] HERMILA VALENCIA I [id number]; 23 minutes DoD Med Management By Pharmacist Initial 15 Min Estab Patient Med Management By Pharmacist Initial 15 Min Estab Patient [id number] ANNIE HERMILA I [id number]; 9 minutes DoD Case Management, each 15 minutes BRAEDEN NUÑEZ AT: 8, 11, 19; F2F [facility] Case Management, each 15 minutes BRAEDEN NUÑEZ D AT: 8(x2), 9, 11, 19 DoD Case Management, each 15 minutes MICHELLE PARK AT# 11 F/U single Service; AT# 16 Patient Teaching DoD Case Management, each 15 minutes BRAEDEN NUÑEZ D AT: 6, 8, 9, 16, 19; F2F [facility] Medication Management By Pharmacist Each Additional 15 Min Medication Management By Pharmacist Each Additional 15 Min [id number] HERMILA VALENCIA I DoD Med Management By Pharmacist Initial 15 Min New Patient Med Management By Pharmacist Initial 15 Min New Patient [id number] [id number] HERMILA VALENCIA I [id number]; 30 minutes DoD Patient Counseling Medical Management Five To Eight Patients Patient Counseling Medical Management Five To Eight Patients [id number] KATELYN OCONNOR DoD Case Management, each 15 minutes 019 OLESYA NJ AT= 2, 13 F2F DoD Coordinated care fee, risk adjusted maintenance 019 OLESYA NJ [facility] Phys Therapy Education Self Care Training - Per 15 Minutes Phys Therapy Education Self Care Training - Per 15 Minutes [id number] MARKOS BOURNE [facility] Coordinated care fee, risk adjusted maintenance 019 OLESYA NJ DoD Case Management, each 15 minutes 019 OLESYA NJ AT= 2, 11, 13, 18 F2F DoD Health And Behav A e mt Each 15 Min Mame e ment Health And Behav Assessmt Each 15 Min Reassessment [id number] [id number] JACLYN DOSS [facility] Health And Behav A e mt Each 15 Min Initial A e ment Health And Behav Assessmt Each 15 Min Initial Assessment [id number] JACLYN DOSS [facility] Coordinated care fee, maintenance rate 019 KLINGENSMIT H, HUSAM R DoD Case Management, each 15 minutes 019 KLINGENSMIT H, HUSAM R 3 DoD Case Management, each 15 minutes 019 MICHELLE PARK AT# 8 x2 Tx team update; AT# 9 Coordination of Appts [facility] Social Work Individual Outpatient Counseling 45-50 Minutes Social Work Individual Outpatient Counseling 45-50 Minutes [id number] [id number] OLESYA ARREOLA DoD Case Management, each 15 minutes 019 MICHELLE PARK AT# 8 x2 Tx team update [facility] Coordinated care fee, maintenance rate 019 MICHELLE PARK DoD Case Management, each 15 minutes 019 OLESYA NJ AT= 1, 5 F2F DoD Coordinated care fee, risk adjusted maintenance 019 OLESYA NJ DoD Case Management, each 15 minutes 019 OLESYA NJ AT= 2, 13 F2f DoD Case Management, each 15 minutes 019 MICHELLE PARK AT# 8 x2 Tx team update [facility] Coordinated care fee, maintenance rate 019 MICHELLE PARK DoD Case Management, each 15 minutes 019 MICHELLE PARK AT# 8 x2 Tx team update DoD Coordinated care fee, maintenance rate 019 MICHELLE PARK DoD Coordinated care fee, maintenance rate 019 MICHELLE PARK DoD Case Management, each 15 minutes 019 MICHELLE PARK AT# 8x2 Tx team update DoD Case Management, each 15 minutes 019 MICHELLE PARK AT# 1 Initial Assessment; AT# 5 Care plan; AT# 11 f/u single service; AT# 16 Pt teaching DoD Coordinated care fee, maintenance rate 019 MICHELLE PARK DoD Psychiatric Evaluation Review of Records and Reports Psychiatric Evaluation Review of Records and Reports [id number] SANJAY MORILLO DoD Case Management, each 15 minutes 019 MICHELLE PARK AT# 8x2 Tx team update DoD Coordinated care fee, maintenance rate 019 MICHELLE PARK DoD Case Management, each 15 minutes 019 MICHELLE PARK AT# 9 Coordination of Appointment Psychiatry DoD Coordinated care fee, maintenance rate 019 MICHELLE PARK DoD Case Management, each 15 minutes 019 MICHELLE PARK AT# 8x2 Tx team update [facility] Coordinated care fee, maintenance rate 019 MICHELLE PARK DoD Case Management, each 15 minutes 019 MICHELLE PARK AT# 8x2 Tx team update [facility] 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, tin flipper LA ZURITA [facility] Psychiatric Evaluation Review of Records and Reports Psychiatric Evaluation Review of Records and Reports [id number] LA ZURITA [facility] Psychiatric Therapy Individual Approximately 20-30 Minutes Psychiatric Therapy Individual Approximately 20-30 Minutes [id number] LA ZURITA [facility] 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, tin flipper LA ZURITA [facility] Case Management, each 15 minutes 019 MICHELLE PARK AT# 9 Coordination of Services DoD Coordinated care fee, maintenance rate 019 MICHELLE PARK [facility] 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, tin flipper 019 LA ZURITA [facility] Medication Management By Pharmacist Each Additional 15 Min Medication Management By Pharmacist Each Additional 15 Min [id number] TONJA JONES Face to face: 45 minutes DoD Case Management, each 15 minutes MICHELLE PARK AT# 9 Coordination of Service DoD Med Management By Pharmacist Initial 15 Min Estab Patient Med Management By Pharmacist Initial 15 Min Estab Patient [id number] HERMILA VALENCIA I [id number]; 9 minutes DoD Case Management, each 15 minutes MICHELLE PARK AT#2 Targeted Assessment; AT#5 f/u Care Plan; AT# 9 Coordination of appts; AT#11 f/u single service; AT# 16 Pt Teaching DoD Case Management, each 15 minutes OLESYA NJ AT= 7, 13 F2F [facility] Physical Therapy: ___ Se ion Segments, 15 Minutes Each Physical Therapy: ___ Session Segments, 15 Minutes Each [id number] DENA HERNANDEZ. 20 min DoD Case Management, each 15 minutes MICHELLE PARK AT# 8 x2 Tx team update DoD Case Management, each 15 minutes OLESYA NJ AT= 6 admin DoD Med Management By Pharmacist Initial 15 Min Estab Patient Med Management By Pharmacist Initial 15 Min Estab Patient [id number] HERMILA VALENCIA I [phone]; 12 minutes DoD Case Management, each 15 minutes BRAEDEN NUÑEZ AT: 1, 5, 6, 13; F2F [facility] Case Management, each 15 minutes MICHELLE PARK AT# 9 Coordination of Service F/U appt; AT# 11 F/U single service Med Rec; AT# 16 Pt teaching DoD Med Management By Pharmacist Initial 15 Min Estab Patient Med Management By Pharmacist Initial 15 Min Estab Patient [id number] HERMILA VALENCIA I [phone]; 20 minutes DoD Social Work Family Medial Psychother (w/o Patient) Guardians Social Work Family Medial Psychother (w/o Patient) Guardians [id number] TERRY MATTHEW DoD Case Management, each 15 minutes BRAEDEN NUÑEZ AT: 13, 16, 19; F2F DoD Case Management, each 15 minutes BRAEDEN NUÑEZ AT: 13, 19; F2F [facility] IMMUNIZATION ADMINISTRATION (INCLUDES PERCUTANEOUS, INTRADERMAL, SUBCUTANEOUS, OR INTRAMUSCULAR INJECTIONS); 1 VACCINE (SINGLE OR COMBINATION VACCINE/TOXOID) [facility] FOOT, ARCH SUPPORT, REMOVABLE, PREMOLDED, LONGITUDINAL, EACH [facility] THERAPEUTIC, PROPHYLACTIC, OR DIAGNOSTIC INJECTION (SPECIFY SUBSTANCE OR DRUG); SUBCUTANEOUS OR INTRAMUSCULAR [facility] AUDIOMETRIC TESTING OF GROUPS [facility] SCREENING TEST OF VISUAL ACUITY, QUANTITATIVE, BILATERAL [facility] COLLECTION OF VENOUS BLOOD BY VENIPUNCTURE [facility] PSYCHOTHERAPY FOR CRISIS; FIRST 60 MINUTES [facility] INTRAVENOUS INFUSION, HYDRATION; INITIAL, 31 MINUTES TO 1 HOUR [facility] IMMUNIZATION ADMINISTRATION (INCLUDES PERCUTANEOUS, INTRADERMAL, SUBCUTANEOUS, OR INTRAMUSCULAR INJECTIONS); 1 VACCINE (SINGLE OR COMBINATION VACCINE/TOXOID) [facility] HEALTH AND BEHAVIOR INTERVENTION, EACH 15 MINUTES, [id number]; INDIVIDUAL [facility] CASE MANAGEMENT, EACH 15 MINUTES [facility] CASE MANAGEMENT, EACH 15 MINUTES [facility] HEALTH AND BEHAVIOR ASSESS (EG, HEALTH-FOC CLIN INTERVIEW, BEHAVIORAL OBSERVATIONS, PSYCHOPHYSICOLOGICAL MON, HEALTH-ORIENTED QUESTIONNAIRES), EACH 15 MIN [id number] WITH THE PATIENT; RE-ASSESS [facility] PSYCHOTHERAPY, 45 MINUTES WITH PATIENT [facility] CASE MANAGEMENT, EACH 15 MINUTES [facility] BRIEF EMOTIONAL/BEHAVIORAL ASSESSMENT (EG, DEPRESSION INVENTORY, ATTENTION-DEFICIT/HYPER ACTIVITY DISORDER [ADHD] SCALE), WITH SCORING AND DOCUMENTATION, PER STANDARDIZED INSTRUMENT [facility] CASE MANAGEMENT, EACH 15 MINUTES [facility] MEDICATION THERAPY MANAGEMENT SERVICE(S) PROVIDED BY A PHARMACIST, INDIVIDUAL, [id number] WITH PATIENT, WITH ASSESSMENT AND INTERVENTION IF PROVIDED; INITIAL 15 MINUTES, ESTABLISHED PATIENT [facility] CASE MANAGEMENT, EACH 15 MINUTES [facility] CASE MANAGEMENT, EACH 15 MINUTES [facility] BRIEF EMOTIONAL/BEHAVIORAL ASSESSMENT (EG, DEPRESSION INVENTORY, ATTENTION-DEFICIT/HYPER ACTIVITY DISORDER [ADHD] SCALE), WITH SCORING AND DOCUMENTATION, PER STANDARDIZED INSTRUMENT [facility] PURE TONE AUDIOMETRY (THRESHOLD), AUTOMATED; AIR ONLY [facility] MEDICATION THERAPY MGT SERVICE(S) PROVIDED,A PHARMACIST,INDIV,FACE-T O-FACE W PATIENT,WITH ASSESS & INTERVENE IF PROVIDED;EA ADDITION 15 MINUTES (LIST SEPARATELY IN ADDITION TO CODE FOR PRIM SERVICE) [facility] HEALTH AND BEHAVIOR ASSESS (EG, HEALTH-FOC CLIN INTERVIEW, BEHAVIORAL OBSERVATIONS, PSYCHOPHYSICOLOGICAL MON, HEALTH-ORIENTED QUESTIONNAIRES), EACH 15 MIN [id number] WITH THE PATIENT; RE-ASSESS [facility] CASE MANAGEMENT, EACH 15 MINUTES THERAPEUTIC PROCEDURE, 1 OR MORE AREAS, EACH 15 MINUTES; THERAPEUTIC EXERCISES TO DEVELOP STRENGTH AND ENDURANCE, RANGE OF MOTION AND FLEXIBILITY [facility] CASE MANAGEMENT, EACH 15 MINUTES [facility] CASE MANAGEMENT, EACH 15 MINUTES [facility] HEALTH AND BEHAVIOR INTERVENTION, EACH 15 MINUTES, [id number]; INDIVIDUAL BRIEF EMOTIONAL/BEHAVIORAL ASSESSMENT (EG, DEPRESSION INVENTORY, ATTENTION-DEFICIT/HYPER ACTIVITY DISORDER [ADHD] SCALE), WITH SCORING AND DOCUMENTATION, PER STANDARDIZED INSTRUMENT [facility] CASE MANAGEMENT, EACH 15 MINUTES [facility] CASE MANAGEMENT, EACH 15 MINUTES [facility] PSYCHOTHERAPY, 60 MINUTES WITH PATIENT [facility] CASE MANAGEMENT, EACH 15 MINUTES [facility] PSYCHOTHERAPY, 60 MINUTES WITH PATIENT BRIEF EMOTIONAL/BEHAVIORAL ASSESSMENT (EG, DEPRESSION INVENTORY, ATTENTION-DEFICIT/HYPER ACTIVITY DISORDER [ADHD] SCALE), WITH SCORING AND DOCUMENTATION, PER STANDARDIZED INSTRUMENT [facility] CASE MANAGEMENT, EACH 15 MINUTES [facility] PSYCHOTHERAPY, 30 MINUTES WITH PATIENT [facility] CASE MANAGEMENT, EACH 15 MINUTES [facility] PSYCHOTHERAPY, 45 MINUTES WITH PATIENT DoD CASE MANAGEMENT, EACH 15 MINUTES BRIEF EMOTIONAL/BEHAVIORAL ASSESSMENT (EG, DEPRESSION INVENTORY, ATTENTION-DEFICIT/HYPER ACTIVITY DISORDER [ADHD] SCALE), WITH SCORING AND DOCUMENTATION, PER STANDARDIZED INSTRUMENT [facility] CASE MANAGEMENT, EACH 15 MINUTES PSYCHOTHERAPY, 30 MINUTES WITH PATIENT [facility] COORDINATED CARE FEE, MAINTENANCE RATE BRIEF EMOTIONAL/BEHAVIORAL ASSESSMENT (EG, DEPRESSION INVENTORY, ATTENTION-DEFICIT/HYPER ACTIVITY DISORDER [ADHD] SCALE), WITH SCORING AND DOCUMENTATION, PER STANDARDIZED INSTRUMENT [facility] MEDICATION THERAPY MGT SERVICE(S) PROVIDED,A PHARMACIST,CHI,FACE-T O-FACE W PATIENT,WITH ASSESS & INTERVENE IF PROVIDED;EA ADDITION 15 MINUTES (LIST SEPARATELY IN ADDITION TO CODE FOR PRIM SERVICE) DoD PSYCHOTHERAPY, 45 MINUTES WITH PATIENT DoD CASE MANAGEMENT, EACH 15 MINUTES DoD PSYCHOTHERAPY, 45 MINUTES WITH PATIENT DoD BLOOD PRESSURE MEASURED (CKD)(DM) [facility] MEDICATION THERAPY MANAGEMENT SERVICE(S) PROVIDED BY A PHARMACIST, INDIVIDUAL, [id number] WITH PATIENT, WITH ASSESSMENT AND INTERVENTION IF PROVIDED; INITIAL 15 MINUTES, ESTABLISHED PATIENT [facility] CASE MANAGEMENT, EACH 15 MINUTES PSYCHOTHERAPY, 30 MINUTES WITH PATIENT BRIEF EMOTIONAL/BEHAVIORAL ASSESSMENT (EG, DEPRESSION INVENTORY, ATTENTION-DEFICIT/HYPER ACTIVITY DISORDER [ADHD] SCALE), WITH SCORING AND DOCUMENTATION, PER STANDARDIZED INSTRUMENT MEDICATION THERAPY MGT SERVICE(S) PROVIDED,A PHARMACISTCHI,FACE-T O-FACE W PATIENT,WITH ASSESS & INTERVENE IF PROVIDED;EA ADDITION 15 MINUTES (LIST SEPARATELY IN ADDITION TO CODE FOR PRIM SERVICE) [facility] CASE MANAGEMENT, EACH 15 MINUTES DoD PSYCHOTHERAPY, 60 MINUTES WITH PATIENT [facility] COORDINATED CARE FEE, RISK ADJUSTED MAINTENANCE [facility] HEALTH AND BEHAVIOR INTERVENTION, EACH 15 MINUTES, [id number]; INDIVIDUAL [facility] PSYCHOTHERAPY, 60 MINUTES WITH PATIENT DoD CASE MANAGEMENT, EACH 15 MINUTES DoD BRIEF EMOTIONAL/BEHAVIORAL ASSESSMENT (EG, DEPRESSION INVENTORY, ATTENTION-DEFICIT/HYPER ACTIVITY DISORDER [ADHD] SCALE), WITH SCORING AND DOCUMENTATION, PER STANDARDIZED INSTRUMENT [facility] BRIEF EMOTIONAL/BEHAVIORAL ASSESSMENT (EG, DEPRESSION INVENTORY, ATTENTION-DEFICIT/HYPER ACTIVITY DISORDER [ADHD] SCALE), WITH SCORING AND DOCUMENTATION, PER STANDARDIZED INSTRUMENT DoD CASE MANAGEMENT, EACH 15 MINUTES DoD PSYCHOTHERAPY, 45 MINUTES WITH PATIENT DoD CASE MANAGEMENT, EACH 15 MINUTES DoD CASE MANAGEMENT, EACH 15 MINUTES DoD CASE MANAGEMENT, EACH 15 MINUTES DoD PSYCHOTHERAPY, 30 MINUTES WITH PATIENT [facility] BRIEF EMOTIONAL/BEHAVIORAL ASSESSMENT (EG, DEPRESSION INVENTORY, ATTENTION-DEFICIT/HYPER ACTIVITY DISORDER [ADHD] SCALE), WITH SCORING AND DOCUMENTATION, PER STANDARDIZED INSTRUMENT [facility] INTERPRETATION OR EXPLANATION OF RESULTS OF PSYCHIATRIC, OTH MEDICAL EXAMS/PROCEDURES, OR OTH ACCUMULATED DATA TO FAMILY OR OTH RESPONSIBLE PERSONS,OR ADVISING THEM HOW TO ASSIST PATIENT [facility] CASE MANAGEMENT, EACH 15 MINUTES [facility] PSYCHOTHERAPY, 30 MINUTES WITH PATIENT [facility] MEDICATION THERAPY MANAGEMENT SERVICE(S) PROVIDED BY A PHARMACIST, INDIVIDUAL, [id number] WITH PATIENT, WITH ASSESSMENT AND INTERVENTION IF PROVIDED; INITIAL 15 MINUTES, ESTABLISHED PATIENT [facility] PSYCHOTHERAPY, 30 MINUTES WITH PATIENT [facility] CASE MANAGEMENT, EACH 15 MINUTES [facility] CASE MANAGEMENT, EACH 15 MINUTES DoD PSYCHOTHERAPY, 60 MINUTES WITH PATIENT [facility] COORDINATED CARE FEE, RISK ADJUSTED MAINTENANCE, LEVEL 3 [facility] PSYCHOTHERAPY, 45 MINUTES WITH PATIENT [facility] MEDICATION THERAPY MANAGEMENT SERVICE(S) PROVIDED BY A PHARMACIST, INDIVIDUAL, [id number] WITH PATIENT, WITH ASSESSMENT AND INTERVENTION IF PROVIDED; INITIAL 15 MINUTES, ESTABLISHED PATIENT [facility] CASE MANAGEMENT, EACH 15 MINUTES [facility] PSYCHOTHERAPY, 45 MINUTES WITH PATIENT DoD PSYCHOTHERAPY, 45 MINUTES WITH PATIENT DoD CASE MANAGEMENT, EACH 15 MINUTES DoD PSYCHOTHERAPY, 45 MINUTES WITH PATIENT [facility] CASE MANAGEMENT, EACH 15 MINUTES [facility] PSYCHIATRIC DIAGNOSTIC EVALUATION [facility] MEDICATION THERAPY MANAGEMENT SERVICE(S) PROVIDED BY A PHARMACIST, INDIVIDUAL, [id number] WITH PATIENT, WITH ASSESSMENT AND INTERVENTION IF PROVIDED; INITIAL 15 MINUTES, ESTABLISHED PATIENT [facility] CASE MANAGEMENT, EACH 15 MINUTES [facility] THERAPEUTIC PROCEDURE, 1 OR MORE AREAS, EACH 15 MINUTES; THERAPEUTIC EXERCISES TO DEVELOP STRENGTH AND ENDURANCE, RANGE OF MOTION AND FLEXIBILITY [facility] EDUCATION &TRAINING, PATIENT SELF-MGT QUALIFIED, NONPHYSICIAN HEALTH CONTACT WORKER LITHOGRAPHY USING STANDARDIZED CURRICULUM, [id number] W THE PATIENT (COULD INCL CAREGIVER/FAMILY) EA 30 MIN; 5-8 PATIENTS [facility] PSYCHOTHERAPY, 60 MINUTES WITH PATIENT [facility] CASE MANAGEMENT, EACH 15 MINUTES [facility] MEDICATION THERAPY MGT SERVICE(S) PROVIDED,A PHARMACIST,INDIV,FACE-T O-FACE W PATIENT,WITH ASSESS & INTERVENE IF PROVIDED;EA ADDITION 15 MINUTES (LIST SEPARATELY IN ADDITION TO CODE FOR PRIM SERVICE) [facility] SELF-CARE/HOME MANAGMENT TRAIN (EG,ACT OF DAILY LIVING (ADL) &COMPENSAT TRAIN,MEAL PREPARATION,SAFETY PROCS,AND INSTRUCT IN USE OF ASST TECHNOLOGY DEV/ADPT EQUIP) DIR ONE-ON-ONE CONT,EA 15 MINUTES [facility] PSYCHOTHERAPY, 60 MINUTES WITH PATIENT [facility] CASE MANAGEMENT, EACH 15 MINUTES [facility] OCCUPATIONAL THERAPY EVALUATION, HIGH COMPLEXITY,REQ:OCCUP PROF &MED &THER HIST;ASSESS,5+ PERF DEF;CLIN DECIS MAKING HIGH COMPLEXITY,TYPICALLY,60 MINUTES ARE SPENT [id number] W THE PATIENT &/FAMILY [facility] PSYCHOTHERAPY, 60 MINUTES WITH PATIENT [facility] COORDINATED CARE FEE, MAINTENANCE RATE [facility] BRIEF EMOTIONAL/BEHAVIORAL ASSESSMENT (EG, DEPRESSION INVENTORY, ATTENTION-DEFICIT/HYPER ACTIVITY DISORDER [ADHD] SCALE), WITH SCORING AND DOCUMENTATION, PER STANDARDIZED INSTRUMENT [facility] CASE MANAGEMENT, EACH 15 MINUTES [facility] PSYCHIATRIC DIAGNOSTIC EVALUATION [facility] CASE MANAGEMENT, EACH 15 MINUTES [facility] PSYCHOTHERAPY, 45 MINUTES WITH PATIENT DoD CASE MANAGEMENT, EACH 15 MINUTES [facility] COORDINATED CARE FEE, RISK ADJUSTED MAINTENANCE DoD CASE MANAGEMENT, EACH 15 MINUTES DoD CASE MANAGEMENT, EACH 15 MINUTES DoD CASE MANAGEMENT, EACH 15 MINUTES DoD CASE MANAGEMENT, EACH 15 MINUTES [facility] PSYCHIATRIC EVALUATION OF HOSPITAL RECORDS, OTHER PSYCHIATRIC REPORTS, PSYCHOMETRIC AND/OR PROJECTIVE TESTS, AND OTHER ACCUMULATED DATA FOR MEDICALDIAGNOSTIC PURPOSES [facility] PSYCHOTHERAPY, 60 MINUTES WITH PATIENT [facility] PSYCHIATRIC DIAGNOSTIC EVALUATION WITH MEDICAL SERVICES DoD CASE MANAGEMENT, EACH 15 MINUTES DoD PSYCHOTHERAPY, 60 MINUTES WITH PATIENT DoD CASE MANAGEMENT, EACH 15 MINUTES DoD PSYCHOTHERAPY, 60 MINUTES WITH PATIENT DoD CASE MANAGEMENT, EACH 15 MINUTES DoD CASE MANAGEMENT, EACH 15 MINUTES DoD CASE MANAGEMENT, EACH 15 MINUTES DoD CASE MANAGEMENT, EACH 15 MINUTES DoD CASE MANAGEMENT, EACH 15 MINUTES DoD CASE MANAGEMENT, EACH 15 MINUTES DoD CASE MANAGEMENT, EACH 15 MINUTES DoD INTERPRETATION OR EXPLANATION OF RESULTS OF PSYCHIATRIC, OTH MEDICAL EXAMS/PROCEDURES, OR OTH ACCUMULATED DATA TO FAMILY OR OTH RESPONSIBLE PERSONS,OR ADVISING THEM HOW TO ASSIST PATIENT DoD CASE MANAGEMENT, EACH 15 MINUTES DoD CASE MANAGEMENT, EACH 15 MINUTES DoD INTERPRETATION OR EXPLANATION OF RESULTS OF PSYCHIATRIC, OTH MEDICAL EXAMS/PROCEDURES, OR OTH ACCUMULATED DATA TO FAMILY OR OTH RESPONSIBLE PERSONS,OR ADVISING THEM HOW TO ASSIST PATIENT DoD CASE MANAGEMENT, EACH 15 MINUTES DoD CASE MANAGEMENT, EACH 15 MINUTES DoD CASE MANAGEMENT, EACH 15 MINUTES DoD CASE MANAGEMENT, EACH 15 MINUTES DoD CASE MANAGEMENT, EACH 15 MINUTES DoD CASE MANAGEMENT, EACH 15 MINUTES DoD COORDINATED CARE FEE, MAINTENANCE RATE DoD CASE MANAGEMENT, EACH 15 MINUTES DoD CASE MANAGEMENT, EACH 15 MINUTES DoD CASE MANAGEMENT, EACH 15 MINUTES DoD CASE MANAGEMENT, EACH 15 MINUTES DoD CASE MANAGEMENT, EACH 15 MINUTES DoD COORDINATED CARE FEE, MAINTENANCE RATE DoD CASE MANAGEMENT, EACH 15 MINUTES DoD CASE MANAGEMENT, EACH 15 MINUTES DoD CASE MANAGEMENT, EACH 15 MINUTES DoD INTERPRETATION OR EXPLANATION OF RESULTS OF PSYCHIATRIC, OTH MEDICAL EXAMS/PROCEDURES, OR OTH ACCUMULATED DATA TO FAMILY OR OTH RESPONSIBLE PERSONS,OR ADVISING THEM HOW TO ASSIST PATIENT DoD CASE MANAGEMENT, EACH 15 MINUTES DoD PSYCHOTHERAPY, 60 MINUTES WITH PATIENT DoD CASE MANAGEMENT, EACH 15 MINUTES [facility] COORDINATED CARE FEE, MAINTENANCE RATE DoD PSYCHOTHERAPY, 60 MINUTES WITH PATIENT DoD CASE MANAGEMENT, EACH 15 MINUTES DoD INTERPRETATION OR EXPLANATION OF RESULTS OF PSYCHIATRIC, OTH MEDICAL EXAMS/PROCEDURES, OR OTH ACCUMULATED DATA TO FAMILY OR OTH RESPONSIBLE PERSONS,OR ADVISING THEM HOW TO ASSIST PATIENT BRIEF EMOTIONAL/BEHAVIORAL ASSESSMENT (EG, DEPRESSION INVENTORY, ATTENTION-DEFICIT/HYPER ACTIVITY DISORDER [ADHD] SCALE), WITH SCORING AND DOCUMENTATION, PER STANDARDIZED INSTRUMENT [facility] CASE MANAGEMENT, EACH 15 MINUTES [facility] PSYCHIATRIC DIAGNOSTIC EVALUATION DoD CASE MANAGEMENT, EACH 15 MINUTES DoD CASE MANAGEMENT, EACH 15 MINUTES DoD PSYCHOTHERAPY, 60 MINUTES WITH PATIENT DoD PSYCHOTHERAPY, 60 MINUTES WITH PATIENT DoD PSYCHOTHERAPY, 60 MINUTES WITH PATIENT DoD PSYCHOTHERAPY, 60 MINUTES WITH PATIENT DoD INTERPRETATION OR EXPLANATION OF RESULTS OF PSYCHIATRIC, OTH MEDICAL EXAMS/PROCEDURES, OR OTH ACCUMULATED DATA TO FAMILY OR OTH RESPONSIBLE PERSONS,OR ADVISING THEM HOW TO ASSIST PATIENT DoD PSYCHOTHERAPY, 60 MINUTES WITH PATIENT [facility] IMMUNIZATION ADMINISTRATION (INCLUDES PERCUTANEOUS, INTRADERMAL, SUBCUTANEOUS, OR INTRAMUSCULAR INJECTIONS); 1 VACCINE (SINGLE OR COMBINATION VACCINE/TOXOID) [facility] PURE TONE AUDIOMETRY (THRESHOLD), AUTOMATED; AIR ONLY [facility] IMMUNIZATION ADMINISTRATION (INCLUDES PERCUTANEOUS, INTRADERMAL, SUBCUTANEOUS, OR INTRAMUSCULAR INJECTIONS); EACH ADDITIONAL VACCINE (SINGLE OR COMBINATION VACCINE/TOXOID) [facility] BRIEF EMOTIONAL/BEHAVIORAL ASSESSMENT (EG, DEPRESSION INVENTORY, ATTENTION-DEFICIT/HYPER ACTIVITY DISORDER [ADHD] SCALE), WITH SCORING AND DOCUMENTATION, PER STANDARDIZED INSTRUMENT [facility] HUNGARIAN ENCEPHALITIS VIRUS VACCINE, INACTIVATED, FOR INTRAMUSCULAR USE [facility] IMMUNIZATION ADMINISTRATION (INCLUDES PERCUTANEOUS, INTRADERMAL, SUBCUTANEOUS, OR INTRAMUSCULAR INJECTIONS); EACH ADDITIONAL VACCINE (SINGLE OR COMBINATION VACCINE/TOXOID) [facility] ADMINISTRATION OF PATIENT-FOCUSED HEALTH RISK ASSESSMENT INSTRUMENT (EG, HEALTH HAZARD APPRAISAL) WITH SCORING AND DOCUMENTATION, PER STANDARDIZED INSTRUMENT [facility] PURE TONE AUDIOMETRY (THRESHOLD), AUTOMATED; AIR ONLY [facility] PURE TONE AUDIOMETRY (THRESHOLD), AUTOMATED; AIR ONLY [facility] INTENSIVE OUTPATIENT PSYCHIATRIC SERVICES, TOLL LINEMAN [facility] PSYCHIATRIC EVALUATION OF HOSPITAL RECORDS, OTHER PSYCHIATRIC REPORTS, PSYCHOMETRIC AND/OR PROJECTIVE TESTS, AND OTHER ACCUMULATED DATA FOR MEDICALDIAGNOSTIC PURPOSES [facility] PSYCHOTHERAPY, 30 MINUTES WITH PATIENT [facility] MEDICATION THERAPY MGT SERVICE(S) PROVIDED,A PHARMACIST,INDIV,FACE-T O-FACE W PATIENT,WITH ASSESS & INTERVENE IF PROVIDED;EA ADDITION 15 MINUTES (LIST SEPARATELY IN ADDITION TO CODE FOR PRIM SERVICE) [facility] INTENSIVE OUTPATIENT PSYCHIATRIC SERVICES, TOLL LINEMAN [facility] UNLISTED SPECIAL SERVICE, PROCEDURE OR REPORT [facility] GROUP PSYCHOTHERAPY (OTHER THAN OF A MULTIPLE-FAMILY GROUP) [facility] PSYCHOTHERAPY, 30 MINUTES WITH PATIENT WHEN PERFORMED WITH AN EVALUATION AND MANAGEMENT SERVICE (LIST SEPARATELY IN ADDITION TO THE CODE FOR PRIMARY PROCEDURE) [facility] TELE ASSESS & MGT SRV PROV QUAL NONPHYS HLTH CARE PRO TO EST PAT,PARENT,GUARD NOT ORIG REL ASSESS & MGT SRV PROV W/IN PREV 7 DAYS NOR LEAD ASSESS & MGT SRV/PX W/IN NXT 24 HR/SOON APT;5-10 MIN MED DIS [facility] INFECTIOUS AGENT ANTIGEN DETECTION BY IMMUNOASSAY WITH DIRECT OPTICAL (IE, VISUAL) OBSERVATION; STREPTOCOCCUS, GROUP A [facility] INTENSIVE OUTPATIENT PSYCHIATRIC SERVICES, TOLL LINEMAN [facility] MEDICAL NUTRITION THERAPY; GROUP (2 OR MORE INDIVIDUAL(S)), EACH 30 MINUTES [facility] PSYCHOLOGICAL OR NEUROPSYCHOLOGICAL TEST ADMINISTRATION AND SCORING BY PHYSICIAN OR OTHER QUALIFIED HEALTH CONTACT WORKER LITHOGRAPHY, TWO OR MORE TESTS, ANY METHOD; FIRST 30 MINUTES [facility] INTENSIVE OUTPATIENT PSYCHIATRIC SERVICES, TOLL LINEMAN [facility] UNLISTED SPECIAL SERVICE, PROCEDURE OR REPORT [facility] PSYCHOTHERAPY, 30 MINUTES WITH PATIENT WHEN PERFORMED WITH AN EVALUATION AND MANAGEMENT SERVICE (LIST SEPARATELY IN ADDITION TO THE CODE FOR PRIMARY PROCEDURE) [facility] PSYCHOTHERAPY, 45 MINUTES WITH PATIENT [facility] INTENSIVE OUTPATIENT PSYCHIATRIC SERVICES, TOLL LINEMAN [facility] INTENSIVE OUTPATIENT PSYCHIATRIC SERVICES, TOLL LINEMAN [facility] BRIEF EMOTIONAL/BEHAVIORAL ASSESSMENT (EG, DEPRESSION INVENTORY, ATTENTION-DEFICIT/HYPER ACTIVITY DISORDER [ADHD] SCALE), WITH SCORING AND DOCUMENTATION, PER STANDARDIZED INSTRUMENT [facility] PSYCHOTHERAPY, 45 MINUTES WITH PATIENT [facility] UNLISTED SPECIAL SERVICE, PROCEDURE OR REPORT [facility] PSYCHOTHERAPY, 30 MINUTES WITH PATIENT WHEN PERFORMED WITH AN EVALUATION AND MANAGEMENT SERVICE (LIST SEPARATELY IN ADDITION TO THE CODE FOR PRIMARY PROCEDURE) [facility] INTENSIVE OUTPATIENT PSYCHIATRIC SERVICES, TOLL LINEMAN [facility] PSYCHOTHERAPY, 45 MINUTES WITH PATIENT [facility] INTENSIVE OUTPATIENT PSYCHIATRIC SERVICES, TOLL LINEMAN [facility] PSYCHOTHERAPY, 60 MINUTES WITH PATIENT [facility] PSYCHIATRIC EVALUATION OF HOSPITAL RECORDS, OTHER PSYCHIATRIC REPORTS, PSYCHOMETRIC AND/OR PROJECTIVE TESTS, AND OTHER ACCUMULATED DATA FOR MEDICALDIAGNOSTIC PURPOSES [facility] INTENSIVE OUTPATIENT PSYCHIATRIC SERVICES, TOLL LINEMAN [facility] ELECTROENCEPHALOGRAM (EEG); INCLUDING RECORDING AWAKE AND DROWSY CASE MANAGEMENT, EACH 15 MINUTES [facility] UNLISTED SPECIAL SERVICE, PROCEDURE OR REPORT PSYCHOTHERAPY, 45 MINUTES WITH PATIENT WHEN PERFORMED WITH AN EVALUATION AND MANAGEMENT SERVICE (LIST SEPARATELY IN ADDITION TO THE CODE FOR PRIMARY PROCEDURE) [facility] INTENSIVE OUTPATIENT PSYCHIATRIC SERVICES, TOLL LINEMAN [facility] INTENSIVE OUTPATIENT PSYCHIATRIC SERVICES, TOLL LINEMAN [facility] PSYCHOTHERAPY, 60 MINUTES WITH PATIENT [facility] PSYCHIATRIC EVALUATION OF HOSPITAL RECORDS, OTHER PSYCHIATRIC REPORTS, PSYCHOMETRIC AND/OR PROJECTIVE TESTS, AND OTHER ACCUMULATED DATA FOR MEDICALDIAGNOSTIC PURPOSES [facility] INTENSIVE OUTPATIENT PSYCHIATRIC SERVICES, TOLL LINEMAN [facility] INTENSIVE OUTPATIENT PSYCHIATRIC SERVICES, TOLL LINEMAN [facility] UNLISTED SPECIAL SERVICE, PROCEDURE OR REPORT [facility] PSYCHOTHERAPY, 30 MINUTES WITH PATIENT WHEN PERFORMED WITH AN EVALUATION AND MANAGEMENT SERVICE (LIST SEPARATELY IN ADDITION TO THE CODE FOR PRIMARY PROCEDURE) [facility] INTENSIVE OUTPATIENT PSYCHIATRIC SERVICES, TOLL LINEMAN [facility] PSYCHOTHERAPY, 30 MINUTES WITH PATIENT [facility] PSYCHOLOGICAL/NEUROPSYC HOLOGICAL TEST ADMIN &SCORING,PHYSICIAN/OTHE R QUALIFIED HEALTH CONTACT WORKER LITHOGRAPHY,TWO/MORE TESTS,ANY METHOD;EACH ADDITIONAL 30 MINUTES (LIST SEP IN ADD TO CODE FOR PRIMARY PROC) [facility] INTENSIVE OUTPATIENT PSYCHIATRIC SERVICES, TOLL LINEMAN [facility] PSYCHOTHERAPY, 30 MINUTES WITH PATIENT [facility] PSYCHIATRIC EVALUATION OF HOSPITAL RECORDS, OTHER PSYCHIATRIC REPORTS, PSYCHOMETRIC AND/OR PROJECTIVE TESTS, AND OTHER ACCUMULATED DATA FOR MEDICALDIAGNOSTIC PURPOSES [facility] UNLISTED SPECIAL SERVICE, PROCEDURE OR REPORT [facility] COORDINATED CARE FEE, MAINTENANCE RATE [facility] PSYCHIATRIC DIAGNOSTIC EVALUATION [facility] GROUP PSYCHOTHERAPY [facility] INDIVIDUAL PSYCHOTHERAPY, BEHAVIORAL [facility] CASE MANAGEMENT, EACH 15 MINUTES [facility] CASE MANAGEMENT, EACH 15 MINUTES [facility] INFLUENZA VIRUS VACCINE, TRIVALENT (RIV3), DERIVED FROM RECOMBINANT DNA, HEMAGGLUTININ (PERRY) PROTEIN ONLY, PRESERVATIVE AND ANTIBIOTIC FREE, FOR INTRAMUSCULAR USE [facility] Social History Combined list of available smoking, tobacco, and other social history from [facility] of Defense and Veterans Affairs facilities. Social History Type Response Date Comment Sourc e Tobacco smoking status [facility] NEVER USED 08/02/2019 [facility] This section is an empty social history section. [facility]
[2024-12-18 21:22] VITALS: BP 122/86; PULSE 82; RESP 15; TEMP 36.6; O2SAT 100
--- NOTE | 2024-12-18 21:24 | ECG_ITS ---
Test Date: 2024-12-18 21:27:40 Measurements Intervals [place] Rate: 75 P: 80 OK: 136 QRS: 80 QRSD: 98 T: 53 QT: 345 QTc: 387 Interpretive Statements SINUS RHYTHM NONSPECIFIC T-WAVE ABNORMALITY- INFERIOR LEADS BORDERLINE ECG No previous ECG available for comparison Electronically Signed On 12-19-2024 06:10:40 CDT by Titus Quiroga D.O.
[2024-12-19] VITALS (10 sets, daily range): BP systolic 125–139; BP diastolic 76–93; PULSE 76–95; RESP 14–19; TEMP 36.6; O2SAT 98–100
[2024-12-19 00:42] LABS: Basophils Percent Auto 0.5 % (0.2-1.2); Eosinophils Absolute Auto 0.1 K/mm3 (0-0.3); Eosinophils Percent Auto 0.8 % (0-4.4); Hematocrit 48.8 % (42.0-52.0); Hemoglobin 15.9 g/dL (14.0-18.0); Immature Granulocyte Absolute 0.01 K/mm3 (0.00-0.031); Immature Granulocyte Percent A 0.2 % (0-0.5); Lymphocytes Absolute Auto 2.02 K/mm3 (0.9-3.2); Lymphocytes Percent Auto 31.3 % (18.3-44.2); Mean Corpuscular HGB Conc 32.6 g/dl (32-36); Mean Corpuscular Hemoglobin 29.5 pg (26-34); Mean Corpuscular Volume 90.5 fl (80-100); Mean Platelet Volume 9.9 fl (7.4-10.4); Monocytes Absolute Auto 0.4 K/mm3 (0.1-0.6); Monocytes Percent Auto 6.2 % (2.6-8.5); Platelet Count Result 201 k/mm3 (150-375); Red Blood Count 5.39 M/mm3 (4.6-6.20); White Blood Count 6.5 K/mm3 (4.5-10.0)
[2024-12-19 00:51] LABS: INR 1.1; Prothrombin Time 14.3 Seconds (11.1-14.7)
[2024-12-19 00:52] LABS: Partial Thromboplastin Time 29.9 Seconds (22.3-36.8)
[2024-12-19 00:57] LABS: Alanine Aminotransferase 15 U/L (6-50); Albumin Level 5.4 g/dL (3.5-5.1); Alkaline Phosphatase 54 U/L (38-126); Anion Gap 14 mmol/L (4-12); Aspartate Amino Transferase 28 U/L (17-59); Bilirubin,Total 1.1 mg/dL (0.2-1.3); Blood Urea Nitrogen 14 mg/dL (9-20); Carbon Dioxide 25 mmol/L (22-30); Chloride 103 mmol/L (98-107); Estimated CRCL calculation 107 ml/min; Estimated Glomerular Filt Rate > 60; Glucose 77 mg/dL (65-110); Lipase 221 U/L (23-300); Potassium 3.8 mmol/L (3.4-5.0); Sodium 142 mmol/L (137-145)
--- NOTE | 2024-12-19 01:00 | ED_ITS ---
HPI - Chest Pain General Chief Complaint: Chest Pain Stated Complaint: chest discomfort x1year Time Seen by Provider: 12/19/24 00:37 History of Present Illness HPI narrative: 29-year-old male with a past medical history including anxiety. He presents to the emergency department for chest discomfort intermittent for 1 year. Patient states he recently got insurance but was not able is tablets with a primary care provider yet and thought it would be a good idea to proceed to the emergency department. Patient states that her has not been any interval changes or worsening to his intermittent chest discomfort and describes fluttering palpitations and some burning discomfort in the left side of his upper chest. Denies any trauma or injury. No shortness of breath, fever, chills, abdominal pain, back pain, nausea vomiting. He was otherwise in his normal state of health. No cardiac history, no significant cardiac disease family history. No new medications. Related Data Allergies Allergy/AdvReac Type Severity Reaction Status Date / Time No Known Allergies Allergy Verified 12/18/24 21:17 Review of Systems 2 Review of Systems: As reviewed above in HPI Exam 2 Narrative: GENERAL: [Well-appearing, well-nourished, and in no acute distress.] HEAD: [Normocephalic, atraumatic.] EYES: [PERRLA and EOMI.] ENT: Nares clear, no rhinorrhea or epistaxis. Mucous membranes moist. NECK: Supple. CHEST: [Clear to auscultation. No respiratory distress.] HEART: [Regular rate and rhythm]. No murmur heard. [Normal peripheral pulses.] ABDOMEN: [Soft, nondistended], [nontender], [No rigidity or guarding] EXTREMITIES: Normal range of motion. [No edema.] SKIN: Warm, dry, no rash. NEURO: [No focal deficits]. Alert and oriented [x3.] PSYCH: Very anxious, does not make direct eye contact Course Vital Signs Vital signs: Vital Signs Temperature 36.6 C 12/18/24 21:22 Pulse Rate 82 12/18/24 21:22 Respiratory Rate 15 12/18/24 21:22 Blood Pressure 122/86 12/18/24 21:22 Pulse Oximetry 100 12/18/24 21:22 Oxygen Delivery Room Air 12/18/24 21:22 Temperature 36.6 C 12/19/24 01:27 Pulse Rate 86 12/19/24 01:27 Respiratory Rate 16 12/19/24 01:27 Blood Pressure 137/76 12/19/24 01:27 Pulse Oximetry 98 12/19/24 01:27 Oxygen Delivery Room Air 12/19/24 00:33 MDM - Chest Pain MDM Narrative Medical decision making narrative: 29-year-old male with history of anxiety presenting with intermittent chest discomfort and palpitations for over 1 year. Patient recently got insurance and tried to establish with a PCP was not able to. Presents to the emergency department for evaluation. He has an unremarkable examination with strong symmetric pulses, clear breath sounds throughout, no wheezing, rhonchi or rales. Normal vital signs with any tachycardia fever, hypoxia. Patient likely has musculoskeletal chest discomfort versus anxiety with very low suspicion ACS or other acute intrathoracic process such as pneumothorax and pneumonia. Workup was ordered including CBC, CMP, chest x-ray, EKG, troponin. Patient was encouraged to try establish with a primary care provider upon workup and discharged from the ED today. Workup shows no leukocytosis or anemia. Normal platelet count. Coagulation panel normal. Electrolytes are unremarkable. Normal renal function, normal hepatic function, normal glucose. Negative troponin. Negative lipase. Chest x-ray on my interpretation shows no consolidations pleural effusions or pneumothorax. Normal cardiac contours. Patient has an unremarkable cardiac workup with a normal EKG and vital signs. He will follow-up with a primary doctor and was safely discharged. Medical Records Data Attestation: I reviewed the patient's medical records. Lab Data Attestation: I reviewed the patient's lab results. 12/19/24 00:33 12/19/24 00:33 Labs: Lab Results 12/19/24 Range/Units 00:33 WBC 6.5 (4.5-10.0) K/mm3 RBC 5.39 (4.6-6.20) M/mm3 Hgb 15.9 (14.0-18.0) g/dL Hct 48.8 (42.0-52.0) % MCV 90.5 (80-100) fl MCH 29.5 (26-34) pg MCHC 32.6 (32-36) g/dl RDW 12.0 (11.5-14.5) % Plt Count 201 (150-375) k/mm3 MPV 9.9 (7.4-10.4) fl Immature Gran % (Auto) 0.2 (0-0.5) % Neut % (Auto) 61.0 (45.5-73.1) % Lymph % (Auto) 31.3 (18.3-44.2) % [place] % (Auto) 6.2 (2.6-8.5) % Eos % (Auto) 0.8 (0-4.4) % Baso % (Auto) 0.5 (0.2-1.2) % Lymph # (Auto) 2.02 (0.9-3.2) K/mm3 [place] # (Auto) 0.4 (0.1-0.6) K/mm3 Eos # (Auto) 0.1 (0-0.3) K/mm3 Baso # (Auto) 0.0 (0.0-0.1) K/mm3 Abs Immat Gran (auto) 0.01 (0.00-0.031) K/mm3 Absolute Neuts (auto) 4.0 (1.3-6.7) K/mm3 Absolute Nucleated RBC 0.000 (0.0-0.012) K/mm3 Nucleated RBC % 0.0 (0.0-0.2) % PT 14.3 (11.1-14.7) Seconds INR 1.1 APTT 29.9 (22.3-36.8) Seconds Sodium 142 (137-145) mmol/L Potassium 3.8 (3.4-5.0) mmol/L Chloride 103 (98-107) mmol/L Carbon Dioxide 25 (22-30) mmol/L Anion Gap 14 H (4-12) mmol/L BUN 14 (9-20) mg/dL Creatinine 0.96 (0.7-1.3) mg/dL Estim Creat Clear Calc 107 ml/min Estimated GFR > 60 (59 - ) Glucose 77 (65-110) mg/dL Calcium 10.0 (8.4-10.2) mg/dL Total Bilirubin 1.1 (0.2-1.3) mg/dL AST 28 (17-59) U/L ALT 15 (6-50) U/L Alkaline Phosphatase 54 (38-126) U/L Troponin I < 0.012 (0.000-0.034) ng/mL Total Protein 9.0 H (6.3-8.2) g/dL Albumin 5.4 H (3.5-5.1) g/dL Lipase 221 (23-300) U/L Imaging Data Attestation: I personally reviewed and interpreted this imaging study as follows: My impression: No cardiac contour abnormalities, no pneumothorax, no pleural effusions or obvious pneumonia. ECG Data EKG #1: Attestation: I personally reviewed and interpreted this ECG as follows: ECG completion date: 12/18/24 ECG completion time: 21:27 Interpretation: Sinus rhythm, no ST segment elevations, depressions or inversions. QTC 387, QRS 98, [place] interval 136. No previous EKG for comparison. Overall final interpretation is normal sinus rhythm. Discharge Plan Discharge Clinical Impression: Chest pain Patient Disposition: Home Condition: Stable Instructions: Antibiotic Form, Chest Pain (ED), Chest Wall Pain (ED) Additional Instructions: Your cardiac workup is reassuring with no acute concerns or lab abnormalities. He will have to establish with a primary care provider for follow-up. Return with any emergent concerns. Patient Language: Kinyarwanda Follow-up/Referrals: PHYSICIAN,NERVE SPECIALIST [Primary Care Provider] - Time of Disposition: 01:05
[2024-12-19 01:03] LABS: Troponin I < 0.012 ng/mL (0.000-0.034)
--- OUTSIDE RECORDS SUMMARY | 2024-12-19 01:10 | XMS_ITS | Continuity of Care Document ---
Author Name [facility] Organization [facility] Care Team Providers Care Public Safety Telecommunicator Name Role Phone [facility] Unavailable Unavailable Problems Combined list of problems from Department of Defense and Veterans Affairs facilities. It does not include entries that were removed or entered in error. Problem Status Onset Date Problem Type Date of Resolution Comments Source Schizophrenia, unspecified Active 01/18/2019 Condition [facility] Schizoaffective disorder Active Condition [facility] CASE MANAGEMENT CONTINUE Active Condition [facility] Mixed obsessional thoughts and acts Active Condition [facility] Major depressive disorder, recurrent, severe with psychotic symptoms Active Condition [facility] Allergies, Adverse Reactions, Alerts Combined list of allergies from Department of Defense and Veterans Affairs facilities. It does not include entries that were removed or entered in error. Substance Category Reaction Severity Reaction type Status Date Reported Comments Source No Known Allergies Drug allergy (disorder) active 9 [place], [place] Immunizations Combined list of available immunizations from the Department [facility] facilities. 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 Comments Source COVID-19 (MODERNA), MRNA, LNP-S, PF, 100 MCG/0.5 ML DOSE 2 2020 207 complet ed MOD; [id number]; 1 [facility] COVID-19 (MODERNA), MRNA, LNP-S, PF, 100 MCG/0.5 ML DOSE 1 2020 207 complet ed MOD; [id number]; 1 [facility] TDAP 2019 115 complet ed Right Deltoid [facility] INFLUENZA, UNSPECIFIED FORMULATION 2018 88 complet ed per [facility] influenza, injectable, quadrivalent, contains preservative 1 2018 [id number] 158 Seqirus (SEQ) complet ed influenza , injectabl e, quadrival ent, contains preservat konstantin DoD Seasonal, trivalent, recombinant, injectable influenza vaccine, preservative free 1 2018 ANGELA ALVES [id number] [facility] (SKB) complet ed Seasonal, trivalent , recombina nt, injectabl e influenza vaccine, preservat konstantin free DoD Seasonal, quadrIvalent, recombinant, injectable influenza vaccine, preservative free 1 2017 ANNAMARIE LYN [id number] 185 Seqirus (SEQ) complet ed Seasonal, quadrIval ent, recombina nt, injectabl e influenza vaccine, preservat konstantin free DoD yellow fever vaccine 1 2017 [id number] 37 Sanofi Pasteur (PMC) complet ed yellow fever vaccine DoD vaccinia (smallpox) vaccine 1 2017 [id number] 75 (JOHN) complet ed vaccinia (smallpox ) vaccine DoD anthrax vaccine 3 2017 ANNAMARIE LYN [id number] 24 [facility] ([facility]) complet ed anthrax vaccine DoD typhoid Vi capsular polysaccharid e vaccine 1 2017 ANNAMARIE LYN [id number] Sanofi Pasteur (PMC) complet ed typhoid Vi capsular polysacch aride vaccine DoD Human rabies vaccine from Chicken fibroblast culture 1 2017 ANNAMARIE LYN [id number] [facility] ([facility]) complet ed Human rabies vaccine from Chicken fibroblas t culture DoD rabies vaccine, for intramuscular injection RETIRED CODE 2 2017 NEGRA OLSON P [id number] 18 Vishnuine (SKB) complet ed rabies vaccine, for intramusc ular injection RETIRED CODE DoD Hungarian Encephalitis vaccine for intramuscular administratio n 2 2017 NEGRA OLSON [id number] 134 Practice Ignition (INT) complet ed Hungarian Encephali tis vaccine for intramusc ular administr ation DoD rabies vaccine, for intramuscular injection RETIRED CODE 1 2016 NEGRA OLSON [id number] 18 Vishnuine (SKB) complet ed rabies vaccine, for intramusc ular injection RETIRED CODE DoD anthrax vaccine 2 2016 NEGRA OLSON [id number] 24 Emergent [facility]Def[facility]eterans [facility] ([facility]) complet ed anthrax vaccine DoD Hungarian Encephalitis vaccine for intramuscular administratio n 1 2016 NEGRA OLSON [id number] 134 [facility] (INT) complet ed Hungarian Encephali tis vaccine for intramusc ular administr ation DoD Influenza, injectable, Madin Atkins Canine Kidney, preservative free, quadrivalent 1 2016 [id number] Seqirus (SEQ) comple t ed Influenza , injectabl e, Madin Iris Canine Kidney, preservat konstantin free, quadrival ent DoD influenza, injectable, quadrivalent, contains preservative 1 2015 [id number] 158 Seqirus (SEQ) complet ed influenza , injectabl e, quadrival ent, contains preservat konstantin DoD anthrax vaccine 1 2015 [id number] 24 Emergent [facility]Def[facility]eterans [facility] ([facility]) complet ed anthrax vaccine DoD typhoid Vi capsular polysaccharid e vaccine 1 2015 [id number] 101 Sanofi Pasteur (PMC) complet ed typhoid Vi capsular polysacch aride vaccine DoD hepatitis B vaccine, adult dosage 3 2014 [id number] 43 SmithKline (SKB) complet ed hepatitis B vaccine, adult dosage DoD Influenza, seasonal, injectable, preservative free 1 2014 [id number] 140 SanNuo Bio-sensingKline (SKB) complet ed Influenza , seasonal, injectabl e, preservat konstantin free DoD hepatitis B vaccine, pediatric or pediatric/ado lescent dosage 2 2014 [id number] 08 Biopsych Health Systemsine (SKB) complet ed hepatitis B vaccine, pediatric [...] diphtheria toxoid conjugate vaccine (MCV4P) 1 2014 [id number] 114 Sanofi Pasteur ([facility]) complet ed meningoco ccal polysacch aride (groups A, C, Y and W-135) diphtheri a toxoid conjugate vaccine (MCV4P) DoD tetanus toxoid, reduced diphtheria toxoid, and acellular pertu is vaccine, adsorbed 1 2014 [id number] 115 Sanofi Pasteur (PMC) complet ed tetanus toxoid, reduced diphtheri a toxoid, and acellular pertussis vaccine, adsorbed DoD Influenza, seasonal, injectable, preservative free 1 2014 [id number] 140 Novartis MWM Media Workflow Management Arturo. (NOV) complet ed Influenza , seasonal, injectabl e, preservat konstantin free DoD Adenovirus, type 4 and type 7, live, oral 1 2014 [id number] 143 SnapSense (BRR) complet ed Adenoviru s, type 4 [...] Source JASMIN Downey(IEP Soldiers Initial Entry) OUTPATIENT [id number] Notes Entered by: KERA LOPEZ J 17 Oct 2014 0506 ------- ------- ------- ------- -- [id number] B3 DAY 1 DONTAE REYES 10/17 Released w/o Limitations [facility] JASMIN Elder(IEP Leland s Initial Entry) JASMIN Downey(IEP Optometry ) OUTPATIENT [id number] LYDIA KEMP 10/17 Released w/o Limitations JASMIN Downey(IEP Optomet ry) [facility] JASMIN Elder(IEP Hearing Conservat ion Exam) OUTPATIENT [id number] JOSIAH COFFEY 10/18 Released w/o Limitations [facility] Fernando Beatty [facility] Ciara Beatty [place] Conserv ation Exam) [facility] Fernando Beatty [facility] [place] OUTPATIENT [id number] Notes Entered by: KERA LOPEZ J 19 Oct 2014 0408 ------- ------- ------- ------- -- 79773 B3 3 VALERIE DINEROAlison 10/19 Released w/o Limitations [facility] Fernando Beatty [facility] [place]) [facility] Fernando Beatty [facility] [place] Er Module[place] OUTPATIENT [id number] Notes Entered by: Radha MURRIETA 10 Nov 2014 0710 ------- ------- ------- ------- -- KNEES; VICENTE CASAREZ 11/10 Released w/o Limitations [facility] Fernando Beatty [facility] Ci[place]-TM C Er Module) [facility] Fernando Beatty [facility] [place] Er [place] OUTPATIENT [id number] Notes Entered by: Radha MURRIETA 24 Nov 2014 0950 ------- ------- ------- ------- -- KNEES. ERIKA SOTO 11/24 Released with Work/Duty Limitations [facility] Fernando Beatty [facility] Ciara Beatty[place] C Er Module) [facility] Fernando Beatty [facility] [place] OUTPATIENT [id number] Notes Entered by: MAGGIE ORTIZ 24 Dec 2014 0502 ------- ------- ------- ------- -- E CO 3-10 DONTAE MILLER 12/24 [facility] [place](IEP [place] Initial Entry) [place] [place] [place] [facility]) OUTPATIENT [id number] Notes Entered by: WANDA BELLE 25 Jul 2015 0518 ------- ------- ------- ------- -- Hep ALLI SILVA 07/25 Released w/o Limitations [place]ela velez [place] [facility]) [place] OUTPATIENT [id number] Notes Entered by: MARIA ELENA ORDAZ 26 Sep 2015 0840 ------- ------- ------- ------- -- Sleep Issues DOROTHY JO 09/26 Sick at Home/Quarter s [place]lez [place]) [facility], [employer], [place]([facility]) OUTPATIENT [id number] annual ROSE VELASQUEZ 12/16 Released w/o Limitations [facility], [employer] ) [facility] [employer] OUTPATIENT [id number] SAADIA BONILLA 12/23 Released w/o Limitations [facility], [employer] [place] [facility] [employer] [place], [place] OUTPATIENT [id number] SHARON HERNANDEZ 11/02 Released w/o Limitations [facility], [employer]) [facility] [employer] [place] OUTPATIENT [id number] post deploy GINETTE CAMPBELL 11/03 Released w/o Limitations [facility], [employer] ) [facility] [employer] [place] OUTPATIENT [id number] EMMA SHANKAR 03/10 Released w/o Limitations [facility], [employer] [facility], [place] OUTPATIENT [id number] 2BN:NEGRA PETERSEN P 07/19 Released w/o Limitations [facility], [employer] [place]) [facility], [place] OUTPAT[place] [id number] Notes Entered by: NEGRA OLSON 17 Nov 2017 1534 ------- ------- ------- ------- -- 2BN:NEGRA PETERSEN 11/17 Released w/o Limitations [facility] [place], [place] OUTPATIENT [id number] 2bn-SLE EP ISSUES CHANELLE ROSENBERG 11/18 Released w/o Limitations [facility], [employer] [place]) [facility], [place] OUTPATIENT [id number] 2bn; ANNAMARIE Leach 01/25 Released w/o Limitations [facility] [employer] [place]) [facility], [place] [id number] annual STARR GATES 02/03 Released w/o Limitations [facility], [employer] [place] ) [facility], [place] OUT[place] [id number] Notes Entered by: ANNAMARIE LYN 15 Jun 2018 0803 ------- ------- ------- ------- -- 2bn; ANNAMARIE Leach 06/15 Released w/o Limitations [facility] [employer] [place]) [facility], [employer], [place] OUTPATIENT [id number] Notes Entered by: ANNAMARIE LYN T 21 Jun 2018 1459 ------- ------- ------- ------- -- YESSENIA Matthews 06/21 Released w/o Limitations [facility], [employer] [place]) [facility], [employer] [place] TELE CONSULT [id number] ANTONIO GREENFIELD Aminta 06/24 [facility], [employer] [place]) [facility], [place] AD DIRECT TO [facility] NEVER TRNF TO [facility] [id number] ABSENT, SICK 07/19 RETURNED TO DUTY [facility], [employer] [place] [place] [facility], [employer], [place]) OUTPATIENT [id number] Notes Entered by: ANNAMARIE LYN 03 Aug 2018 1011 ------- ------- ------- ------- -- 2bn; Psych CHANELLE ROSENBERG 08/03 Released w/o Limitations [facility] [employer] [place]) [place] [address] AD DIRECT TO [facility] NEVER TRNF TO [facility] [id number] HIWOT SYLVESTER 08/27 RETURNED TO DUTY [facility] [place] [address] [facility] DIRECT TO [facility] FROM OTHER THAN ER OR APU [id number] MICHELINE CASTILLO 10/26 RETURNED TO DUTY [facility] INPATIENT [id number] ANGELA Olivo 10/27 Inpatient- Still a Patient [facility]( Immuniz ation Clinic [facility]) [facility](In t Med [facility] Medical [facility]) OUTPATIENT [id number] [facility]LASTIC SURGERY RODOLFO MACIEL 11/28 Released w/o Limitations [facility]( Int Med [facility]) [facility]) OUTPATIENT [id number] [facility] BREAST [facility] RODOLFO MACIEL 12/01 Released w/o Limitations [facility]( Int Med CL [facility]) [facility] [place]) OUTPATIENT [id number] Gynecom astia, pl eval/tr eat AMBROSIO, KERRY TURZA 12/06 Released w/o Limitations [facility]( [facility] [place] [facility]) [facility](EE G [facility] [place]) OUTPATIENT [id number] proc/ee g JUNI EDEN 12/07 Released w/o Limitations [facility]( EEG [facility] [place] [facility]) [facility](Ne urology [facility] [place]) OUTPATIENT [id number] STEVEN APONTE 12/07 Released w/o Limitations [facility]( Neurolo gy [facility] [place] [facility]) [facility](In tegrative [facility]) OUTPATIENT [id number] pcs group TRINITY SHAW 12/15 Released w/o Limitations [facility]( Integra tive [facility]) [facility](Nu trition [facility] [place]) OUTPATIENT [id number] BEHAVIO RAL NUTRITI ON DOMINGA CARR 12/23 Released w/o Limitations [facility]( Nutriti on [facility] [place]) [place] OUT[place] [id number] 2BN-dis charge follow up PRESLEY ZAMARRIPA 01/04 Released w/o Limitations [place]) Ci[place] Lloyd [place]) OUTPATIENT [id number] Notes Entered by: MEEK MORILLO 19 Jan 2019 1535 ------- ------- ------- ------- -- MEB Review SANJAY MORILLO BAKARI 01/19 Released w/o Limitations [facility] [employer]) [facility], [place]([facility] talker [facility]) TELE CONSULT [id number] Notes Entered by: KATHY ZAMARRIPA 23 Jan 2019 1558 ------- ------- ------- ------- -- MEB PRESLEY Cho 01/23 [facility] [employer] [place]) [facility], [place]([employer] Providers ) OUTPATIENT [id number] CTB AVELINO FELIZ 02/02 Released with Work/Duty Limitations [facility], [employer] [facility], [place]([facility] 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) 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 [id number] Notes Entered by: OLESYA NJ 13 Feb 2019 1008 ------- ------- ------- ------- -- initial risk assessm ent OLESYA NJ 02/13 Released with Work/Duty Limitations [facility], [employer] 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 ) [facility], [place]([facility]) OUTPATIENT [id number] PCM OLESYA SANTIZO 02/13 Released w/o Limitations [facility], [employer] ior Care) [facility], [place]([facility] 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) OUTPATIENT [id number] Notes Entered by: OLESYA NJ 13 Feb 2019 1128 ------- ------- ------- ------- -- initial intake with NCM OLESYA NJ 02/13 Released with Work/Duty Limitations [facility] [place] 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 ) [facility], [employer] 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 OUTPATIENT [id number] weekly follow up with NCOLESYA BEATTY 02/14 Released with Work/Duty Limitations [facility], 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 [facility], [employer] [id number] RA/NOM/ COMPANY Tom GREGOR RAMIREZINE NOEL 02/17 Released with Work/Duty Limitations [facility], [employer] [place] [facility], 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 OUT[place] [id number] Notes Entered by: Radha WIGGINS 17 Feb 2019 1449 ------- ------- ------- ------- -- WTU NCAminta berrios Inspect HUSAM Up 02/17 Released with Work/Duty Limitations [facility], 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 [facility], [employer] [id number] OT Intake YAMEL BAER 02/22 Released w/o Limitations [facility], [employer] [facility], 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 [id number] weekly follow up with OLESYA RYAN 02/22 Released with Work/Duty Limitations [facility], 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 [facility], [employer] [id number] OT [place] MARKOS GARDINER 02/27 Released w/o Limitations [facility], [employer] [facility], [employer] [place] [id number] INTAKE 02/13/19 HERMILA VALENCIA I 02/28 Released w/o Limitations [facility], [employer] [place] [facility], [employer] [place] TELE CONSULT [id number] Notes Entered by: OLESYA NJ 01 Mar 2019 1043 ------- ------- ------- ------- -- medicat ion refill needed OLESYA NJ 03/01 Referred for Appointment [facility] [employer] [place] [facility] [employer] [place] [id number] MED BRIEF HERMILA VALENCIA I 03/02 Released w/o Limitations [facility] [employer] [place] [facility] [employer] [place] [id number] HR APPT HERMILA VALENCIA I 03/06 Released w/o Limitations [facility], [employer] [place] [facility], [employer] [id number] Notes Entered by: KAMRAN HERNANDEZ 06 Mar 2019 1352 ------- ------- ------- ------- -- SARA intake DENA HERNANDEZ 03/06 Released with Work/Duty Limitations [facility] [employer] [facility], 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 [id number] Notes Entered by: OLESYA NJ 09 Mar 2019 0702 ------- ------- ------- ------- -- FTR at 1330 OLESYA NJ 03/09 Released with Work/Duty Limitations [facility] 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 [facility], 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 [id number] weekly follow up with NCM OLESYA NJ 03/09 Released with Work/Duty Limitations [facility] 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 [facility] [employer] [place] [id number] HR APPT HERMILA VALENCIA I 03/10 Released w/o Limitations [facility], [employer] [place] [facility] [employer] [place] [id number] MONTHLY APPT JAMES CHUCKELIAS COHEN 03/15 Released with Work/Duty Limitations [facility] [employer] [place] [facility] 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) [place] [id number] WTU NCM WEEKLY F/U DUGYON, BRAEDEN D 03/17 Released with Work/Duty Limitations [facility] 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 [facility] [employer] [place] [id number] WEEKLY HERMILA VALENCIA I 03/21 Released w/o Limitations [facility], [employer] [place] [facility], 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 [id number] WTU NCM WEEKLY F/U DUGYON, BRAEDEN D 03/23 Released with Work/Duty Limitations [facility] 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 [facility] 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) [place] [id number] WTU NCM WEEKLY F/U DUGYON, BRAEDEN D 03/29 Released with Work/Duty Limitations [facility] 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 [facility] 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) [place] [id number] WTU NCM WEEKLY F/U DUGYON, BRAEDEN D 04/04 Released with Work/Duty Limitations [facility] 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 [facility] [employer] [place] [id number] MONTHLY APPT CHUCK RAMIREZ 04/13 Released w/o Limitations [facility] [employer] [place] [facility] [employer] 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 [id number] XWX WTB NCM GINA XIONG 04/13 Released with Work/Duty Limitations [facility] 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 [facility] 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) [place] [id number] WTU NCM WEEKLY F/U DUGYON, BRAEDEN D 04/20 Released with Work/Duty Limitations [facility] 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 [facility] 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) [place] [id number] WTU NCM WEEKLY F/U DUGYON, BRAEDEN D 04/27 Released with Work/Duty Limitations [facility] 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 [facility] [employer] [place] [id number] HR APPT HERMILA VALENCIA I 04/28 Released w/o Limitations [facility], [employer] [place] [facility] [employer] 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 [id number] WTU NCM WEEKLY F/U DUGYON, BRAEDEN D 05/04 Released with Work/Duty Limitations [facility] 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 [facility] [employer] [place] [id number] HR APPT HERMILA VALENCIA I 05/04 Released w/o Limitations [facility] [employer] [place] [facility] [employer] [place] [id number] Notes Entered by: FARHAT MEDELLIN 08 May 2019 1448 ------- ------- ------- ------- -- B/P Check CHUCK RAMIREZ 05/08 Released w/o Limitations [facility] [employer] [place] [facility] [employer] 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) [place] [id number] WTU NCM WEEKLY F/U BRAEDEN NUÑEZ D 05/11 Released with Work/Duty Limitations [facility] 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 [facility] [employer] [place] [id number] HR APPT HERMILA VALENCIA I 05/12 Released w/o Limitations [facility] [employer] [place] [facility] [employer] [place] [id number] MONTHLY CHUCK RAMIREZ 05/17 Released with Work/Duty Limitations [facility] [employer] [place] [facility] [employer] 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 [id number] WTU NCM WEEKLY F/U BRAEDEN NUÑEZ D 05/18 Released with Work/Duty Limitations [facility] 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 [facility] [employer] TELE CONSULT [id number] Notes Entered by: Sugar RAMIREZ 23 May 2019 1321 ------- ------- ------- ------- -- SM with psychia tric symptom s c/w schizop hrenia request ing imaging , CHUCK RAMIREZ 05/23 [facility] [employer] [place] [facility] [facility] [employer] 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) OUT[place] [id number] WTU NCM WEEKLY F/U DUGYON, BRAEDEN D 05/25 Released with Work/Duty Limitations [facility] 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 [facility] 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) [place] [id number] WTU NCM WEEKLY F/U DUGYON, BRAEDEN D 05/29 Released with Work/Duty Limitations [facility] 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 [facility] [place] OUTPATIENT [id number] MONTHLY APPT CHUCK RAMIREZ 06/01 Released with Work/Duty Limitations [facility], [employer] [facility], [employer] 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 OUT[place] [id number] WTU NCM WEEKLY F/U DUGYON, BRAEDEN D 06/06 Released with Work/Duty Limitations [facility], 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 [facility] [employer] 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 [id number] WTU NCM WEEKLY F/U DUGYON, BRAEDEN D 06/12 Released with Work/Duty Limitations [facility], 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 [facility] [employer] 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 [id number] WTU NCM WEEKLY F/U DUGYON, BRAEDEN D 06/19 Released with Work/Duty Limitations [facility], 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 [facility] [employer] 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 [id number] WTU NCM WEEKLY F/U DUGYON, BRAEDEN D 06/27 Released with Work/Duty Limitations [facility], [employer] 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 [facility] [employer] [place] 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 [id number] WTU NCM WEEKLY F/U BRAEDEN NUÑEZ 07/04 Released with Work/Duty Limitations [facility], [employer] 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 [facility], [employer] [place] [id number] Notes Entered by: KAMRAN HERNANDEZ 04 Jul 2019 1509 ------- ------- ------- ------- -- SARA re-DENA Olivier 07/04 Released with Work/Duty Limitations [facility], [employer] [facility], [employer] [place] [id number] Notes Entered by: FARHAT MEDELLIN 10 Jul 2019 0955 ------- ------- ------- ------- -- Monthly OLESYA VASQUEZ 07/10 Released w/o Limitations [facility], [employer] [place] [facility], [employer] 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 [id number] WTU NCM WEEKLY F/U BRAEDEN NUÑEZ 07/11 Released with Work/Duty Limitations [facility], 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 [facility] [employer] [place] [id number] HR APPT HERMILA VALENCIA I 07/12 Released w/o Limitations [facility], [employer] [facility] [employer] [place] [id number] annual OLGA PEREZ 07/12 Released w/o Limitations [facility], [employer] [place] [facility] [employer] [place] [id number] HR APPT HERMILA VALENCIA John 07/14 Released w/o Limitations [facility], [employer] [facility], [employer] [place] 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 [id number] NCM [facility] 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 SHAYNE OSORIO GRECIA 07/14 Released with Work/Duty Limitations [facility], 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 [facility], [employer] 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 [id number] WTU NCM WEEKLY F/U DUGYON, BRAEDEN D 07/17 Released with Work/Duty Limitations [facility], 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 [facility] [employer] 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 [id number] WTU NCM WEEKLY F/U DUGYON, BRAEDEN D 07/24 Released with Work/Duty Limitations [facility], 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 [facility] [employer] 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 [id number] WTU NCM WEEKLY F/U DUGYON, BRAEDEN D 07/31 Released with Work/Duty Limitations [facility], 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 [facility] [employer] [place] [place] [id number] Notes Entered by: FARHAT MEDELLIN 07 Aug 2019 1232 ------- ------- ------- ------- -- Monthly OLESYA VASQUEZ 08/07 Released w/o Limitations [facility], [employer] [facility] [employer] 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 [id number] WTU NCM WEEKLY F/U DUGYON, BRAEDEN D 08/09 Released with Work/Duty Limitations [facility], [employer] 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 [facility] Outpatient Encounter [id number] 12/05 [facility] Procedures Combined list of: [...] MICHELLE PARK AT# 11 F/U Single service [facility] Update DoD Coordinated care fee, maintenance rate 019 MICHELLE PARK DoD Case Management, each 15 minutes 019 MICHELLE PARK AT# 11 F/U single service In-Pt DoD Coordinated care fee, maintenance rate 019 MICHELLE PARK Case Management, each 15 minutes 019 MICHELLE PARK AT#11 f/u single service; AT#17 Pt teaching complex Hospital admission Laine [place] AT#9 Coordination of Services [facility] Coordinated care fee, maintenance rate 019 MICHELLE [...] care fee, maintenance rate 018 MICHELLE PARK [facility] Psychiatric Evaluation Comprehensive Examination Psychiatric Evaluation Comprehensive Examination [id number] 018 BLAYNE MORALES Case Management, each 15 minutes 018 MICHELLE PARK AT#9 Coordination of Service Hosp D/C appt; AT# 11 F/U In-Pt update [facility] Coordinated care fee, maintenance rate 018 MICHELLE PARK [facility] Coordinated care fee, maintenance rate 018 MICHLELE PARK Case Management, each 15 minutes 018 MICHELLE PARK AT#9 Coordination of Service In-Pt Admission [facility] DoD Immunization Administration One Vaccine Immunization Administration One Vaccine 03792 018 ANNAMARIE LYN [facility] Threshold Audiogram (Pure Tone) Automated Threshold Audiogram (Pure Tone) Automated [id number] 018 STARR GATES DoD Immunization Administration One Vaccine Immunization Administration One Vaccine 28147 018 ANNAMARIE LYN [facility] Immunization Administration Each Additional Vaccine Immunization Administration Each Additional Vaccine 17094 06/05/2 018 EBONIMARVNahomy OLSON [facility] Typhoid Vaccine Vi Capsular Polysaccharide, For Intramus Use Typhoid Vaccine Vi Capsular Polysaccharide, For Intramus Use 57467 018 EBONI ANNAMARIE OLSON Typhoid, ViCPs; Series #: 1; .5 mL; IM; Left Arm; Mfg: [employer] P[employer]; Lot: [id number]; VIS given (Abdirashid: 01/19/12). [facility] Rabies Vaccine For Intramuscular Use Rabies Vaccine For Intramuscular Use 93884 018 RESHMAANNAMARIE QUINTERO WESLEY Rabies - IM fibroblast culture; Series #: 1; 1.0 mL; IM; Left Arm; Mfg: Yapmo; Lot: [id number]; VIS given (Abdirashid: 05/28/2009). [facility] Psychiatric Evaluation Comprehensive Examination Psychiatric Evaluation Comprehensive Examination 67676 018 BLAYNE MORALES [facility] Rabies Vaccine For Intramuscular Use Rabies Vaccine For Intramuscular Use 018 NEGRA OLSON Rabies - Intramuscular; Series #: 2; 1.0 mL; IM; Left Arm; Mfg: Yapmo; Lot: [id number]; VIS given (Abdirashid: 05/28/2009). [facility] Immunization Administration One Vaccine Immunization Administration One Vaccine NEGRA OLSON [facility] Immunization Administration Each Additional Vaccine Immunization Administration Each Additional Vaccine 018 NEGRA OLSON [facility] Vaccines Viral Hungarian Encephalitis Inactivated, Intramuscular Vaccines Viral Hungarian Encephalitis Inactivated, Intramuscular 78093 018 NEGRA OLSON Hungarian Encephalitis IM; Series #: 2; .5 mL; IM; Left Arm; Mfg: [employer]; Lot: [id number]; VIS given (Abdirashid: 09/15/13). [facility] Rabies Vaccine For Intramuscular Use Rabies Vaccine For Intramuscular Use 017 NEGRA OLSON Rabies - Intramuscular; Series #: 1; 1.0 mL; IM; Right Arm; g: Yapmo; Lot: [id number]; VIS given (Abdirashid: 05/28/2009). [facility] Vaccines Viral Hungarian Encephalitis Inactivated, Intramuscular Vaccines Viral Hungarian Encephalitis Inactivated, Intramuscular 25547 017 NEGRA OLSON Hungarian Encephalitis IM; Series #: 1; .5 mL; IM; Left Arm; [facility] [employer]; Lot: [id number]; VIS given (Abdirashid: 09/15/13). DoD Immunization Administration One Vaccine Immunization Administration One Vaccine 38922 017 NEGRA OLSON [facility] Immunization Administration Each Additional Vaccine Immunization Administration Each Additional Vaccine 20276 017 NEGRA OLSON [facility] Threshold Audiogram (Pure Tone) Automated Threshold Audiogram (Pure Tone) Automated 0208T 017 GINETTE CAMPBELL [facility] Threshold Audiogram (Pure Tone) Automated Threshold Audiogram (Pure Tone) Automated [id number] 016 ROSE VELASQUEZ [facility] Immunization Administration One Vaccine Immunization Administration One Vaccine 83074 015 FRITZ ARMENTA [facility] Hepatitis B Vaccine (Active); 20 Years and Above Hepatitis B Vaccine (Active); 20 Years and Above 58587 015 FRITZ ARMENTA [facility] Immunization Administration One Vaccine Immunization Administration One Vaccine 77945 015 DONTAE REYES [facility] Hep B Vaccine (Active); Adolescent (2 Dose Schedule) Hep B Vaccine (Active); Adolescent (2 Dose Schedule) 69760 015 DONTAE REYES [facility] Orthopedic shoe addition, insole, rubber 015 VICENTE HARKINS [facility] Vaccines Adenovirus Type 7 Live, For Oral Use Vaccines Adenovirus Type 7 Live, For Oral Use [address] [facility] Vaccines Adenovirus Type 4 Live, For Oral Use Vaccines Adenovirus Type 4 Live, For Oral Use [address] Influenza Split Virus Vaccine Age 3+ Years Intramuscular [address] Supervised Injection Intramuscular Antibiotic Supervised Injection Intramuscular Antibiotic [address] [facility] Vaccines Viral Polio, Inactivated (Salk) Vaccines Viral Polio, Inactivated (Salk) [address] Tdap Vaccine Tdap Vaccine [address] Hep B Vaccine (Active); Adolescent (2 Dose Schedule) Hep B Vaccine (Active); Adolescent (2 Dose Schedule) [address] [facility] Immunization Administration Each Additional Vaccine Immunization Administration Each Additional Vaccine [address] [facility] Immunization Administration One Vaccine Immunization Administration One Vaccine [address] [facility] Meningococcal Conjugate Vaccine Tetravalent (A C Y W-135) [place] FLAKITO [facility] Audiometry Group Testing Audiometry Group Testing 97037 015 ERLINDA JOSIAH L [facility] Venipuncture Venipuncture 36587 DONTAE REYES [facility] Screening Test Of Visual Acuity, Quantitative, Bilateral Screening Test Of Visual Acuity, Quantitative, Bilateral 14193 015 EAMON COPELAND [facility] Med Management By Pharmacist Initial 15 Min New Patient Med Management By Pharmacist Initial 15 Min New Patient [id number] [id number] TONJA JONES [facility] Psychiat Therapy Indiv Appr 20-30 Min W/ Med Eval Managemt Psychiat Therapy Indiv Appr 20-30 Min W/ Med Eval Managemt 18947 BALTA ROCKWELL [facility] Case Management, each 15 minutes MICHELLE PARK AT# 7 Multi-D Conf Provider consult; AT# 10 Coordination Complex service; AT# 16 Teaching/Infor mation update [facility] Coordinated care fee, maintenance rate MICHELLE PARK [facility] Psychiatric Therapy Group (Interactive) Psychiatric Therapy Group (Interactive) 48934 BALTA ROCKWELL [facility] 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, 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 BALTA ROCKWELL [facility] Non-Physician Phone Call To Patient/Provider Brief (5-10min) Non-Physician Phone Call To Patient/Provider Brief (5-10min) 08362 SADAF BOURNE [facility] Psychiatric Therapy Preparation of Psychiatric Status Report Psychiatric Therapy Preparation of Psychiatric Status Report 82394 LA ZURITA [facility] Medical Nutrition Therapy Group (2 or More Individual(s)) Medical Nutrition Therapy Group (2 or More Individual(s)) 15240 019 LILLY DOMINGA CARLO DoD Psychiat Therapy Indiv Appr 20-30 Min W/ Med Eval Managemt Psychiat Therapy Indiv Appr 20-30 Min W/ Med Eval Managemt 00877 DUANE ZURITAA Moises DoD 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, 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 DEREK ZURITATHIA T DoD Psychiatric Therapy Individual Approximately 45-50 Minutes Psychiatric Therapy Individual Approximately 45-50 Minutes [id number] 019 DEREK ZURITATHIA T DoD Psychiatric Therapy Individual Approximately 45-50 Minutes Psychiatric Therapy Individual Approximately 45-50 Minutes 96404 DEREK ZURITATHIA T DoD 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, 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 DEREK ZURITATHIA T DoD Psychiat Therapy Indiv Appr 20-30 Min W/ Med Eval Managemt Psychiat Therapy Indiv Appr 20-30 Min W/ Med Eval Managemt 40541 BALTA ROCKWELL [facility] 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, 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 DUANE ZURITAA Moises Vergara 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, 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 DEREK ZURITATHIA Moises Vergara Psychiatric Evaluation Review of Records and Reports Psychiatric Evaluation Review of Records and Reports 01047 DUANE ZURITAA Moises DoD Psychiatric Therapy Preparation of Psychiatric Status Report Psychiatric Therapy Preparation of Psychiatric Status Report 47422 DUANE ZURITAA Moises Vergara Psychiat Therapy Indiv Appr 20-30 Min W/ Med Eval Managemt Psychiat Therapy Indiv Appr 20-30 Min W/ Med Eval Managemt 93006 DEREK ZURITATHIA Moises DoD Psychiatric Therapy Individual Approximately 45-50 Minutes Psychiatric Therapy Individual Approximately 45-50 Minutes 28239 DUANE ZURITAA Moises DoD 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, 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 DEREK ZURITATHIA Moises DoD Coordinated care fee, maintenance rate MICHELLE PARK DoD Case Management, each 15 minutes MICHELLE PARK AT# 7 Multi-D Conf DoD Psychiatric Therapy Individual Approximately 45-50 Minutes Psychiatric Therapy Individual Approximately 45-50 Minutes [id number] MARY CASTELLANO [facility] 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, 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 LA ZURITA [facility] Case Management, each 15 minutes MICHELLE PARK AT# 8 x2 Tx team update, AT# 18 VMM left [facility] Coordinated care fee, maintenance rate MICHELLE PARK [facility] Psychiat Therapy Indiv Appr 20-30 Min W/ Med Eval Managemt Psychiat Therapy Indiv Appr 20-30 Min W/ Med Eval Managemt 24093 BALTA ROCKWELL [facility] 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, 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 LA ZURITA [facility] Psychiat Therapy Indiv Appr 20-30 Min W/ Med Eval Managemt Psychiat Therapy Indiv Appr 20-30 Min W/ Med Eval Managemt 10133 BALTA ROCKWELL [facility] 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, 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 LA ZURITA [facility] Psychiatric Therapy Group (Interview) Psychiatric Therapy Group (Interview) [id number] BALTA ROCKWELL [facility] Psychiatric Evaluation Review of Records and Reports Psychiatric Evaluation Review of Records and Reports 17324 BALTA ROCKWELL [facility] Psychiatric Therapy Preparation of Psychiatric Status Report Psychiatric Therapy Preparation of Psychiatric Status Report 60325 BALTA ROCKWELL [facility] 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, 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 LA ZURITA [facility] Psychiatric Therapy Individual Approximately 20-30 Minutes Psychiatric Therapy Individual Approximately 20-30 Minutes 81739 LA ZURITA [facility] EEG Technique Exam Recording Awake And Drowsy EEG Technique Exam Recording Awake And Drowsy 30279 JUNI EDEN [facility] Case Management, each 15 minutes MICHELLE PARK AT# 8 x2 Tx team update [facility] Coordinated care fee, maintenance rate MICHELLE PARK [facility] Case Management, each 15 minutes YOVANNY TOUSSAINT Contact with Provider 2 = 30 minutes, Contact with [facility] Jose Solis 1 = 15 minutes. 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 019 YUDITH, LA T DoD Psychiat Therapy Indiv Appr 20-30 Min W/ Med Eval Managemt Psychiat Therapy Indiv Appr 20-30 Min W/ Med Eval Managemt 65160 019 BALTA ROCKWELL [facility] Psychiatric Evaluation Review of Records and Reports Psychiatric Evaluation Review of Records and Reports 97240 019 BALTA ROCKWELL [facility] 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, 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 019 YUDITH, LA T DoD 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, 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 019 YUDITH LA T DoD 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, 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 019 YUDITH, LA T DoD Psychiat Therapy Indiv Appr 20-30 Min W/ Med Eval Managemt Psychiat Therapy Indiv Appr 20-30 Min W/ Med Eval Managemt 22782 019 BALTA ROCKWELL [facility] Psychiatric Therapy Individual Approximately 20-30 Minutes Psychiatric Therapy Individual Approximately 20-30 Minutes [id number] 019 DEREK ZURITATHIA T DoD 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, 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 019 DEREK ZURITATHIA T DoD Psychiatric Therapy Individual Approximately 20-30 Minutes Psychiatric Therapy Individual Approximately 20-30 Minutes 28325 019 DEREK ZURITATHIA T DoD Psychiatric Therapy Group (Interview) Psychiatric Therapy Group (Interview) [id number] 019 BALTA ROCKWELL [facility] Psychiatric Evaluation Review of Records and Reports Psychiatric Evaluation Review of Records and Reports 13613 019 DUANE ZURITAA Moises [facility] Psychiatric Evaluation Comprehensive Examination Psychiatric Evaluation Comprehensive Examination 46298 019 BALTA ROCKWELL DoD Case Management, each 15 minutes 019 YOVANNY TOUSSAINT The patient has been discharged from to [facility]. The patient will be transferred to [facility] after completing PCS at . Command Pattern Puncher : TSGT Eran Beard/ [phone]. 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 Transferred and discharge from Tracking 4 = 60 minutes . [facility] Coordinated care fee, maintenance rate 019 YOVANNY TOUSSAINT DoD Case Management, each 15 minutes 019 MICHELLE PARK AT# 4 In-Patient f/u; AT# 9 Coordination of [facility] services [facility] Coordinated care fee, maintenance rate 019 MICHELLE [...] MICHELLE PARK AT# 8x2 Tx team update [facility] Case Management, each 15 minutes 019 YOVANNY TOUSSAINT FU = 4, Non-contact patient = 2 (total = 6) DoD Case Management, each 15 minutes 019 MICHELLE PARK AT# 8x2 Tx team update [facility] Coordinated care fee, maintenance rate 019 MICHELLE PARK DoD Case Management, each 15 minutes 019 YOVANNY TOUSSAINT Attended 7 [facility] huddle 3 = 45 minutes, [facility] Chart Review 2 = 30 minutes. TOTAL: 5 = 75 minutes DoD Immunization Administration One Vaccine Immunization Administration One Vaccine 38623 019 ANGELA ALVES DoD Case Management, each 15 minutes 019 AVELINO CARMONA [facility] Coordinated care fee, maintenance rate 019 MICHELLE PARK DoD Case Management, each 15 minutes 019 MICHELLE PARK AT# 8 x2 Tx team update DoD Case Management, each 15 minutes 019 RANI POLANCO I Per [facility] Acuity Calculator #7, 9 DoD Case Management, [...] Case Management, each 15 minutes 019 MICHELLE PAKR AT# 7 Multi-D Conf Phoncon; AT# 11 F/U single service DoD Coordinated care fee, maintenance rate 019 MICHELLE PARK DoD Case Management, each 15 minutes 019 MICHELLE PARK AT# 8 x2 Tx team update DoD Case Management, each 15 minutes 019 MICHELLE PARK AT# 7 Multi-D Conference Consult to [facility] DoD Case Management, each 15 minutes [...] Social Work Individual Outpatient Counseling 20-30 Minutes 93220 ARIEL HERNANDEZ DoD Case Management, each 15 minutes GINA XIONG acuity calculator: 2, 9, 11, 13, 16 DoD Coordinated care fee, risk adjusted maintenance, Level 3 MICHELLE PARK DoD Case Management, each 15 minutes MICHELLE PARK AT# 2 Targeted Assessment; AT# 11 F/U single service; AT# 16 Pt teaching DoD Case Management, each 15 minutes BRAEDEN NUÑEZ AT: 7, 19; F2F [facility] Health And Behavior Intervention, Each 15 Minutes Individual Health And Behavior Intervention, Each 15 Minutes Individual 61110 JACLYN DOSS [facility] Coordinated care fee, maintenance rate BRAEDEN NUÑEZ DoD Case Management, each 15 minutes BRAEDEN NUÑEZ D AT: 8, 9, 16, 19; [facility] Med Management By Pharmacist Initial 15 Min Estab Patient Med Management By Pharmacist Initial 15 Min Estab Patient [id number] HERMILA VALENCIA I [phone]; 24 minutes DoD Medication Management By Pharmacist Each Additional 15 Min Medication Management By Pharmacist Each Additional 15 Min 89359 HERMILA VALENCIA I DoD Case Management, each 15 minutes BRAEDEN NUÑEZ AT: 8, 11, 16, 19; [address] Social Work Individual Outpatient Counseling 45-50 Minutes Social Work Individual Outpatient Counseling 45-50 Minutes 13171 SHAYNE HENNESSY L DoD Case Management, each 15 minutes BRAEDEN NUÑEZ D AT: 8(x2), 9, 19; F2F [facility] Health And Behav A e mt Each 15 Min Initial A e ment Health And Behav Assessmt Each 15 Min Initial Assessment 66259 OLESYA ARREOLA DoD Med Management By Pharmacist Initial 15 Min Estab Patient Med Management By Pharmacist Initial 15 Min Estab Patient [id number] JONES I [phone]; 15 minutes DoD Med Management By Pharmacist Initial 15 Min Estab Patient Med Management By Pharmacist Initial 15 Min Estab Patient [id number] HERMILA VALENCIA I [id number]; 23 minutes DoD Case Management, each 15 minutes MICHELLE PARK AT# 2 Targeted Assessment; AT# 11 F/U single service; AT# 16 Patient teaching DoD Case Management, each 15 minutes BRAEDEN NUÑEZ D AT: 7, 8, 19; F2F [facility] Health And Behav A e mt Each 15 Min Mame e ment Health And Behav Assessmt Each 15 Min Reassessment 12420 JACLYN DOSS DoD Case Management, each 15 minutes BRAEDEN NUÑEZ D AT: 16, 19; [facility] Case Management, each 15 minutes BRAEDEN NUÑEZ D AT: 8, 9, 19; [address] Case Management, each 15 minutes MICHELLE PARK AT# 2 Targeted Assessment; AT# 5 Care Plan update/review; AT# 11 f/u single service; AT# 16 Patient teaching [facility] Case Management, each 15 minutes BRAEDEN NUÑEZ AT: 11, 19; F2F [facility] Physical Medicine Physical Therapy Re-Evaluation Physical Medicine Physical Therapy Re-Evaluation [id number] DENA HERNANDEZ [facility] Physical Therapy: ___ Se ion Segments, 15 Minutes Each Physical Therapy: ___ Session Segments, 15 Minutes Each 97630 DENA HERNANDEZ [facility] Case Management, each 15 minutes BRAEDEN NUÑEZ AT: 9, 19; F2F [facility] Case Management, each 15 minutes BRAEDEN NUÑEZ AT: 8, 12, 19; F2F [facility] Threshold Audiogram (Pure Tone) Automated Threshold Audiogram (Pure Tone) Automated 0208T OLGA PEREZ [facility] Case Management, each 15 minutes MICHELLE PARK AT# 11 F/U single Service; AT# 16 Pt teaching [facility] Case Management, each 15 minutes SHAYNE HAIDER AT: 3X4 DoD Med Management By Pharmacist Initial 15 Min Estab Patient Med Management By Pharmacist Initial 15 Min Estab Patient [id number] HERMILA VALENCIA I [phone]; 23 minutes DoD Med Management By Pharmacist Initial 15 Min Estab Patient Med Management By Pharmacist Initial 15 Min Estab Patient [id number] ANNIE HERMILA I [phone]; 9 minutes DoD Case Management, each 15 minutes BRAEDEN NUÑZE AT: 8, 11, 19; F2F [facility] Case Management, each 15 minutes BRAEDEN NUÑEZ D AT: 8(x2), 9, 11, 19 DoD Case Management, each 15 minutes MICHELLE PARK AT# 11 F/U single Service; AT# 16 Patient Teaching DoD Case Management, each 15 minutes BRAEDEN NUÑEZ D AT: 6, 8, 9, 16, 19; F2F [facility] [facility] Medication Management By Pharmacist Each Additional 15 Min Medication Management By Pharmacist Each Additional 15 Min [id number] HERMILA VALENCIA I DoD Med Management By Pharmacist Initial 15 Min New Patient Med Management By Pharmacist Initial 15 Min New Patient [id number] HERMILA VALENCIA I [id number]; 30 minutes DoD Patient Counseling Medical Management Five To Eight Patients Patient Counseling Medical Management Five To Eight Patients [phone] KATELYN OCONNOR DoD Case Management, each 15 minutes 019 OLESYA NJ AT= 2, 13 F2F DoD Coordinated care fee, risk adjusted maintenance 019 OLESYA NJ [facility] Phys Therapy Education Self Care Training - Per 15 Minutes Phys Therapy Education Self Care Training - Per 15 Minutes [id number] [id number] MARKOS BOURNE [facility] Coordinated care fee, risk adjusted maintenance 019 OLESYA NJ DoD Case Management, each 15 minutes 019 OLESYA NJ AT= 2, 11, 13, 18 F2F DoD Health And Behav A e mt Each 15 Min Mame e ment Health And Behav Assessmt Each 15 Min Reassessment [id number] [id number] JACLYN DOSS [facility] Health And Behav A e mt Each 15 Min Initial A e ment Health And Behav Assessmt Each 15 Min Initial Assessment [id number] [id number] JACLYN DOSS [facility] Coordinated care fee, maintenance rate 019 KLINGENSMIT H, HUSAM R DoD Case Management, each 15 minutes 019 KLINGENSMIT H, HUSAM R 3 DoD Case Management, each 15 minutes 019 MICHELLE PARK AT# 8 x2 Tx team update; AT# 9 Coordination of Appts [facility] Social Work Individual Outpatient Counseling 45-50 Minutes Social Work Individual Outpatient Counseling 45-50 Minutes [id number] [id number] OLESYA ARREOLA DoD Case Management, each 15 minutes 019 MICHELLE PARK AT# 8 x2 Tx team update [facility] Coordinated care fee, maintenance rate 019 MICHELLE PARK DoD Case Management, each 15 minutes 019 OLESYA NJ AT= 1, 5 F2F DoD Coordinated care fee, risk adjusted maintenance 019 OLESYA NJ DoD Case Management, each 15 minutes 019 OLESYA NJ AT= 2, 13 F2f DoD Case Management, each 15 minutes 019 MICHELLE PARK AT# 8 x2 Tx team update [facility] Coordinated care fee, maintenance rate 019 MICHELLE [...] Psychiatric Evaluation Review of Records and Reports [id number] SANJAY MORILLO DoD Case Management, each 15 minutes 019 MICHELLE PARK AT# 8x2 Tx team update DoD Coordinated care fee, maintenance rate 019 MICHELLE PARK DoD Case Management, each 15 minutes 019 MICHELLE PARK AT# 9 Coordination of Appointment Psychiatry DoD Coordinated care fee, maintenance rate 019 MICHELLE PARK DoD Case Management, each 15 minutes 019 MICHELLE PARK AT# 8x2 Tx team update [facility] Coordinated care fee, maintenance rate 019 MICHELLE PARK DoD Case Management, each 15 minutes 019 MICHELLE PARK AT# 8x2 Tx team update [facility] 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, 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 LA ZURITA [facility] Psychiatric Evaluation Review of Records and Reports Psychiatric Evaluation Review of Records and Reports [id number] LA ZURITA [facility] Psychiatric Therapy Individual Approximately 20-30 Minutes Psychiatric Therapy Individual Approximately 20-30 Minutes [id number] LA ZURITA [facility] 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, 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 LA ZURITA [facility] Case Management, each 15 minutes 019 MICHELLE PARK AT# 9 Coordination of Services DoD Coordinated care fee, maintenance rate 019 MICHELLE PARK [facility] 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, 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 019 LA ZURITA [facility] Medication Management By Pharmacist Each Additional 15 Min Medication Management By Pharmacist Each Additional 15 Min [id number] [phone] TONJA JONES Face to face: 45 minutes DoD Case Management, each 15 minutes MICHELLE PARK AT# 9 Coordination of Service DoD Med Management By Pharmacist Initial 15 Min Estab Patient Med Management By Pharmacist Initial 15 Min Estab Patient [id number] HERMILA VALENCIA I [phone]; 9 minutes DoD Case Management, each 15 minutes MICHELLE PARK AT#2 Targeted Assessment; AT#5 f/u Care Plan; AT# 9 Coordination of appts; AT#11 f/u single service; AT# 16 Pt Teaching DoD Case Management, each 15 minutes OLESYA NJ AT= 7, 13 F2F [facility] Physical Therapy: ___ Se ion Segments, 15 Minutes Each Physical Therapy: ___ Session Segments, 15 Minutes Each [id number] DENA HERNANDEZ. 20 min DoD Case Management, each 15 minutes MICHELLE PARK AT# 8 x2 Tx team update DoD Case Management, each 15 minutes OLESYA NJ AT= 6 admin DoD Med Management By Pharmacist Initial 15 Min Estab Patient Med Management By Pharmacist Initial 15 Min Estab Patient [id number] HERMILA VALENCIA I [id number]; 12 minutes DoD Case Management, each 15 minutes BRAEDEN NUÑEZ AT: 1, 5, 6, 13; F2F [facility] Case Management, each 15 minutes MICHELLE PARK AT# 9 Coordination of Service F/U appt; AT# 11 F/U single service Med Rec; AT# 16 Pt teaching DoD Med Management By Pharmacist Initial 15 Min Estab Patient Med Management By Pharmacist Initial 15 Min Estab Patient [id number] HERMILA VLAENCIA I [phone]; 20 minutes DoD Social Work Family Medial Psychother (w/o Patient) Guardians Social Work Family Medial Psychother (w/o Patient) Guardians [id number] TERRY MATTHEW DoD Case Management, each 15 minutes BRAEDEN NUÑEZ AT: 13, 16, 19; F2F DoD Case Management, each 15 minutes BRAEDEN NUÑEZ AT: 13, 19; F2F [facility] IMMUNIZATION ADMINISTRATION (INCLUDES PERCUTANEOUS, INTRADERMAL, SUBCUTANEOUS, OR INTRAMUSCULAR INJECTIONS); 1 VACCINE (SINGLE OR COMBINATION VACCINE/TOXOID) [facility] FOOT, ARCH SUPPORT, REMOVABLE, PREMOLDED, LONGITUDINAL, EACH [facility] THERAPEUTIC, PROPHYLACTIC, OR DIAGNOSTIC INJECTION (SPECIFY SUBSTANCE OR DRUG); SUBCUTANEOUS OR INTRAMUSCULAR [facility] AUDIOMETRIC TESTING OF GROUPS [facility] SCREENING TEST OF VISUAL ACUITY, QUANTITATIVE, BILATERAL [facility] COLLECTION OF VENOUS BLOOD BY VENIPUNCTURE [facility] PSYCHOTHERAPY FOR CRISIS; FIRST 60 MINUTES [facility] INTRAVENOUS INFUSION, HYDRATION; INITIAL, 31 MINUTES TO 1 HOUR [facility] IMMUNIZATION ADMINISTRATION (INCLUDES PERCUTANEOUS, INTRADERMAL, SUBCUTANEOUS, OR INTRAMUSCULAR INJECTIONS); 1 VACCINE (SINGLE OR COMBINATION VACCINE/TOXOID) [facility] HEALTH AND BEHAVIOR INTERVENTION, EACH 15 MINUTES, [id number]; INDIVIDUAL [facility] CASE MANAGEMENT, EACH 15 MINUTES [facility] CASE MANAGEMENT, EACH 15 MINUTES [facility] HEALTH AND BEHAVIOR ASSESS (EG, HEALTH-FOC CLIN INTERVIEW, BEHAVIORAL OBSERVATIONS, PSYCHOPHYSICOLOGICAL MON, HEALTH-ORIENTED QUESTIONNAIRES), EACH 15 MIN [id number] WITH THE PATIENT; RE-ASSESS [facility] PSYCHOTHERAPY, 45 MINUTES WITH PATIENT [facility] CASE MANAGEMENT, EACH 15 MINUTES [facility] BRIEF EMOTIONAL/BEHAVIORAL ASSESSMENT (EG, DEPRESSION INVENTORY, ATTENTION-DEFICIT/HYPER ACTIVITY DISORDER [ADHD] SCALE), WITH SCORING AND DOCUMENTATION, PER STANDARDIZED INSTRUMENT [facility] CASE MANAGEMENT, EACH 15 MINUTES [facility] MEDICATION THERAPY MANAGEMENT SERVICE(S) PROVIDED BY A PHARMACIST, INDIVIDUAL, [id number] WITH PATIENT, WITH ASSESSMENT AND INTERVENTION IF PROVIDED; INITIAL 15 MINUTES, ESTABLISHED PATIENT [facility] CASE MANAGEMENT, EACH 15 MINUTES [facility] CASE MANAGEMENT, EACH 15 MINUTES [facility] BRIEF EMOTIONAL/BEHAVIORAL ASSESSMENT (EG, DEPRESSION INVENTORY, ATTENTION-DEFICIT/HYPER ACTIVITY DISORDER [ADHD] SCALE), WITH SCORING AND DOCUMENTATION, PER STANDARDIZED INSTRUMENT [facility] PURE TONE AUDIOMETRY (THRESHOLD), AUTOMATED; AIR ONLY [facility] MEDICATION THERAPY MGT SERVICE(S) PROVIDED,A PHARMACIST,INDIV,FACE-T O-FACE W PATIENT,WITH ASSESS & INTERVENE IF PROVIDED;EA ADDITION 15 MINUTES (LIST SEPARATELY IN ADDITION TO CODE FOR PRIM SERVICE) [facility] HEALTH AND BEHAVIOR ASSESS (EG, HEALTH-FOC CLIN INTERVIEW, BEHAVIORAL OBSERVATIONS, PSYCHOPHYSICOLOGICAL MON, HEALTH-ORIENTED QUESTIONNAIRES), EACH 15 MIN [id number] WITH THE PATIENT; RE-ASSESS [facility] CASE MANAGEMENT, EACH 15 MINUTES THERAPEUTIC PROCEDURE, 1 OR MORE AREAS, EACH 15 MINUTES; THERAPEUTIC EXERCISES TO DEVELOP STRENGTH AND ENDURANCE, RANGE OF MOTION AND FLEXIBILITY [facility] CASE MANAGEMENT, EACH 15 MINUTES [facility] CASE MANAGEMENT, EACH 15 MINUTES [facility] HEALTH AND BEHAVIOR INTERVENTION, EACH 15 MINUTES, [id number]; INDIVIDUAL BRIEF EMOTIONAL/BEHAVIORAL ASSESSMENT (EG, DEPRESSION INVENTORY, ATTENTION-DEFICIT/HYPER ACTIVITY DISORDER [ADHD] SCALE), WITH SCORING AND DOCUMENTATION, PER STANDARDIZED INSTRUMENT [facility] CASE MANAGEMENT, EACH 15 MINUTES [facility] CASE MANAGEMENT, EACH 15 MINUTES [facility] PSYCHOTHERAPY, 60 MINUTES WITH PATIENT [facility] CASE MANAGEMENT, EACH 15 MINUTES [facility] PSYCHOTHERAPY, 60 MINUTES WITH PATIENT BRIEF EMOTIONAL/BEHAVIORAL ASSESSMENT (EG, DEPRESSION INVENTORY, ATTENTION-DEFICIT/HYPER ACTIVITY DISORDER [ADHD] SCALE), WITH SCORING AND DOCUMENTATION, PER STANDARDIZED INSTRUMENT [facility] CASE MANAGEMENT, EACH 15 MINUTES [facility] PSYCHOTHERAPY, 30 MINUTES WITH PATIENT [facility] CASE MANAGEMENT, EACH 15 MINUTES [facility] PSYCHOTHERAPY, 45 MINUTES WITH PATIENT DoD CASE MANAGEMENT, EACH 15 MINUTES BRIEF EMOTIONAL/BEHAVIORAL ASSESSMENT (EG, DEPRESSION INVENTORY, ATTENTION-DEFICIT/HYPER ACTIVITY DISORDER [ADHD] SCALE), WITH SCORING AND DOCUMENTATION, PER STANDARDIZED INSTRUMENT [facility] CASE MANAGEMENT, EACH 15 MINUTES PSYCHOTHERAPY, 30 MINUTES WITH PATIENT [facility] COORDINATED CARE FEE, MAINTENANCE RATE BRIEF EMOTIONAL/BEHAVIORAL ASSESSMENT (EG, DEPRESSION INVENTORY, ATTENTION-DEFICIT/HYPER ACTIVITY DISORDER [ADHD] SCALE), WITH SCORING AND DOCUMENTATION, PER STANDARDIZED INSTRUMENT [facility] MEDICATION THERAPY MGT SERVICE(S) PROVIDED,A PHARMACIST,CHI,FACE-T O-FACE W PATIENT,WITH ASSESS & INTERVENE IF PROVIDED;EA ADDITION 15 MINUTES (LIST SEPARATELY IN ADDITION TO CODE FOR PRIM SERVICE) DoD PSYCHOTHERAPY, 45 MINUTES WITH PATIENT DoD CASE MANAGEMENT, EACH 15 MINUTES DoD PSYCHOTHERAPY, 45 MINUTES WITH PATIENT DoD BLOOD PRESSURE MEASURED (CKD)(DM) [facility] MEDICATION THERAPY MANAGEMENT SERVICE(S) PROVIDED BY A PHARMACIST, INDIVIDUAL, [id number] WITH PATIENT, WITH ASSESSMENT AND INTERVENTION IF PROVIDED; INITIAL 15 MINUTES, ESTABLISHED PATIENT [facility] CASE MANAGEMENT, EACH 15 MINUTES PSYCHOTHERAPY, 30 MINUTES WITH PATIENT BRIEF EMOTIONAL/BEHAVIORAL ASSESSMENT (EG, DEPRESSION INVENTORY, ATTENTION-DEFICIT/HYPER ACTIVITY DISORDER [ADHD] SCALE), WITH SCORING AND DOCUMENTATION, PER STANDARDIZED INSTRUMENT MEDICATION THERAPY MGT SERVICE(S) PROVIDED,A PHARMACISTCHI,FACE-T O-FACE W PATIENT,WITH ASSESS & INTERVENE IF PROVIDED;EA ADDITION 15 MINUTES (LIST SEPARATELY IN ADDITION TO CODE FOR PRIM SERVICE) [facility] CASE MANAGEMENT, EACH 15 MINUTES DoD PSYCHOTHERAPY, 60 MINUTES WITH PATIENT [facility] COORDINATED CARE FEE, RISK ADJUSTED MAINTENANCE [facility] HEALTH AND BEHAVIOR INTERVENTION, EACH 15 MINUTES, [id number]; INDIVIDUAL [facility] PSYCHOTHERAPY, 60 MINUTES WITH PATIENT DoD CASE MANAGEMENT, EACH 15 MINUTES DoD BRIEF EMOTIONAL/BEHAVIORAL ASSESSMENT (EG, DEPRESSION INVENTORY, ATTENTION-DEFICIT/HYPER ACTIVITY DISORDER [ADHD] SCALE), WITH SCORING AND DOCUMENTATION, PER STANDARDIZED INSTRUMENT [facility] BRIEF EMOTIONAL/BEHAVIORAL ASSESSMENT (EG, DEPRESSION INVENTORY, ATTENTION-DEFICIT/HYPER ACTIVITY DISORDER [ADHD] SCALE), WITH SCORING AND DOCUMENTATION, PER STANDARDIZED INSTRUMENT DoD CASE MANAGEMENT, EACH 15 MINUTES DoD PSYCHOTHERAPY, 45 MINUTES WITH PATIENT DoD CASE MANAGEMENT, EACH 15 MINUTES DoD CASE MANAGEMENT, EACH 15 MINUTES DoD CASE MANAGEMENT, EACH 15 MINUTES DoD PSYCHOTHERAPY, 30 MINUTES WITH PATIENT [facility] BRIEF EMOTIONAL/BEHAVIORAL ASSESSMENT (EG, DEPRESSION INVENTORY, ATTENTION-DEFICIT/HYPER ACTIVITY DISORDER [ADHD] SCALE), WITH SCORING AND DOCUMENTATION, PER STANDARDIZED INSTRUMENT [facility] INTERPRETATION OR EXPLANATION OF RESULTS OF PSYCHIATRIC, OTH MEDICAL EXAMS/PROCEDURES, OR OTH ACCUMULATED DATA TO FAMILY OR OTH RESPONSIBLE PERSONS,OR ADVISING THEM HOW TO ASSIST PATIENT [facility] CASE MANAGEMENT, EACH 15 MINUTES [facility] PSYCHOTHERAPY, 30 MINUTES WITH PATIENT [facility] MEDICATION THERAPY MANAGEMENT SERVICE(S) PROVIDED BY A PHARMACIST, INDIVIDUAL, [id number] WITH PATIENT, WITH ASSESSMENT AND INTERVENTION IF PROVIDED; INITIAL 15 MINUTES, ESTABLISHED PATIENT [facility] PSYCHOTHERAPY, 30 MINUTES WITH PATIENT [facility] CASE MANAGEMENT, EACH 15 MINUTES [facility] CASE MANAGEMENT, EACH 15 MINUTES DoD PSYCHOTHERAPY, 60 MINUTES WITH PATIENT [facility] COORDINATED CARE FEE, RISK ADJUSTED MAINTENANCE, LEVEL 3 [facility] PSYCHOTHERAPY, 45 MINUTES WITH PATIENT [facility] MEDICATION THERAPY MANAGEMENT SERVICE(S) PROVIDED BY A PHARMACIST, INDIVIDUAL, [id number] WITH PATIENT, WITH ASSESSMENT AND INTERVENTION IF PROVIDED; INITIAL 15 MINUTES, ESTABLISHED PATIENT [facility] CASE MANAGEMENT, EACH 15 MINUTES [facility] PSYCHOTHERAPY, 45 MINUTES WITH PATIENT DoD PSYCHOTHERAPY, 45 MINUTES WITH PATIENT DoD CASE MANAGEMENT, EACH 15 MINUTES DoD PSYCHOTHERAPY, 45 MINUTES WITH PATIENT [facility] CASE MANAGEMENT, EACH 15 MINUTES [facility] PSYCHIATRIC DIAGNOSTIC EVALUATION [facility] MEDICATION THERAPY MANAGEMENT SERVICE(S) PROVIDED BY A PHARMACIST, INDIVIDUAL, [id number] WITH PATIENT, WITH ASSESSMENT AND INTERVENTION IF PROVIDED; INITIAL 15 MINUTES, ESTABLISHED PATIENT [facility] CASE MANAGEMENT, EACH 15 MINUTES [facility] THERAPEUTIC PROCEDURE, 1 OR MORE AREAS, EACH 15 MINUTES; THERAPEUTIC EXERCISES TO DEVELOP STRENGTH AND ENDURANCE, RANGE OF MOTION AND FLEXIBILITY [facility] EDUCATION &TRAINING, PATIENT SELF-MGT QUALIFIED, NONPHYSICIAN HEALTH PROPERTY MANAGEMENT ACCOUNTANT USING STANDARDIZED CURRICULUM, [id number] W THE PATIENT (COULD INCL CAREGIVER/FAMILY) EA 30 MIN; 5-8 PATIENTS [facility] PSYCHOTHERAPY, 60 MINUTES WITH PATIENT [facility] CASE MANAGEMENT, EACH 15 MINUTES [facility] MEDICATION THERAPY MGT SERVICE(S) PROVIDED,A PHARMACIST,INDIV,FACE-T O-FACE W PATIENT,WITH ASSESS & INTERVENE IF PROVIDED;EA ADDITION 15 MINUTES (LIST SEPARATELY IN ADDITION TO CODE FOR PRIM SERVICE) [facility] SELF-CARE/HOME MANAGMENT TRAIN (EG,ACT OF DAILY LIVING (ADL) &COMPENSAT TRAIN,MEAL PREPARATION,SAFETY PROCS,AND INSTRUCT IN USE OF ASST TECHNOLOGY DEV/ADPT EQUIP) DIR ONE-ON-ONE CONT,EA 15 MINUTES [facility] PSYCHOTHERAPY, 60 MINUTES WITH PATIENT [facility] CASE MANAGEMENT, EACH 15 MINUTES [facility] OCCUPATIONAL THERAPY EVALUATION, HIGH COMPLEXITY,REQ:OCCUP PROF &MED &THER HIST;ASSESS,5+ PERF DEF;CLIN DECIS MAKING HIGH COMPLEXITY,TYPICALLY,60 MINUTES ARE SPENT [id number] W THE PATIENT &/FAMILY [facility] PSYCHOTHERAPY, 60 MINUTES WITH PATIENT [facility] COORDINATED CARE FEE, MAINTENANCE RATE [facility] BRIEF EMOTIONAL/BEHAVIORAL ASSESSMENT (EG, DEPRESSION INVENTORY, ATTENTION-DEFICIT/HYPER ACTIVITY DISORDER [ADHD] SCALE), WITH SCORING AND DOCUMENTATION, PER STANDARDIZED INSTRUMENT [facility] CASE MANAGEMENT, EACH 15 MINUTES [facility] PSYCHIATRIC DIAGNOSTIC EVALUATION [facility] CASE MANAGEMENT, EACH 15 MINUTES [facility] PSYCHOTHERAPY, 45 MINUTES WITH PATIENT DoD CASE MANAGEMENT, EACH 15 MINUTES [facility] COORDINATED CARE FEE, RISK ADJUSTED MAINTENANCE DoD CASE MANAGEMENT, EACH 15 MINUTES DoD CASE MANAGEMENT, EACH 15 MINUTES DoD CASE MANAGEMENT, EACH 15 MINUTES DoD CASE MANAGEMENT, EACH 15 MINUTES [facility] PSYCHIATRIC EVALUATION OF HOSPITAL RECORDS, OTHER PSYCHIATRIC REPORTS, PSYCHOMETRIC AND/OR PROJECTIVE TESTS, AND OTHER ACCUMULATED DATA FOR MEDICALDIAGNOSTIC PURPOSES [facility] PSYCHOTHERAPY, 60 MINUTES WITH PATIENT [facility] PSYCHIATRIC DIAGNOSTIC EVALUATION WITH MEDICAL SERVICES DoD [...] PATIENT DoD CASE MANAGEMENT, EACH 15 MINUTES [facility] COORDINATED CARE FEE, MAINTENANCE RATE DoD PSYCHOTHERAPY, 60 MINUTES WITH PATIENT DoD CASE MANAGEMENT, EACH 15 MINUTES DoD INTERPRETATION OR EXPLANATION OF RESULTS OF PSYCHIATRIC, OTH MEDICAL EXAMS/PROCEDURES, OR OTH ACCUMULATED DATA TO FAMILY OR OTH RESPONSIBLE PERSONS,OR ADVISING THEM HOW TO ASSIST PATIENT BRIEF EMOTIONAL/BEHAVIORAL ASSESSMENT (EG, DEPRESSION INVENTORY, ATTENTION-DEFICIT/HYPER ACTIVITY DISORDER [ADHD] SCALE), WITH SCORING AND DOCUMENTATION, PER STANDARDIZED INSTRUMENT [facility] CASE MANAGEMENT, EACH 15 MINUTES [facility] PSYCHIATRIC DIAGNOSTIC EVALUATION DoD CASE MANAGEMENT, EACH [...] INJECTIONS); 1 VACCINE (SINGLE OR COMBINATION VACCINE/TOXOID) [facility] PURE TONE AUDIOMETRY (THRESHOLD), AUTOMATED; AIR ONLY [facility] IMMUNIZATION ADMINISTRATION (INCLUDES PERCUTANEOUS, INTRADERMAL, SUBCUTANEOUS, OR INTRAMUSCULAR INJECTIONS); EACH ADDITIONAL VACCINE (SINGLE OR COMBINATION VACCINE/TOXOID) [facility] BRIEF EMOTIONAL/BEHAVIORAL ASSESSMENT (EG, DEPRESSION INVENTORY, ATTENTION-DEFICIT/HYPER ACTIVITY DISORDER [ADHD] SCALE), WITH SCORING AND DOCUMENTATION, PER STANDARDIZED INSTRUMENT [facility] MONTENEGRIN ENCEPHALITIS VIRUS VACCINE, INACTIVATED, FOR INTRAMUSCULAR USE [facility] IMMUNIZATION ADMINISTRATION (INCLUDES PERCUTANEOUS, INTRADERMAL, SUBCUTANEOUS, OR INTRAMUSCULAR INJECTIONS); EACH ADDITIONAL VACCINE (SINGLE OR COMBINATION VACCINE/TOXOID) [facility] ADMINISTRATION OF PATIENT-FOCUSED HEALTH RISK ASSESSMENT INSTRUMENT (EG, HEALTH HAZARD APPRAISAL) WITH SCORING AND DOCUMENTATION, PER STANDARDIZED INSTRUMENT [facility] PURE TONE AUDIOMETRY (THRESHOLD), AUTOMATED; AIR ONLY [facility] PURE TONE AUDIOMETRY (THRESHOLD), AUTOMATED; AIR ONLY [facility] INTENSIVE OUTPATIENT PSYCHIATRIC SERVICES, GEOLOGICAL TECHNICAL OFFICER [facility] PSYCHIATRIC EVALUATION OF HOSPITAL RECORDS, OTHER PSYCHIATRIC REPORTS, PSYCHOMETRIC AND/OR PROJECTIVE TESTS, AND OTHER ACCUMULATED DATA FOR MEDICALDIAGNOSTIC PURPOSES [facility] PSYCHOTHERAPY, 30 MINUTES WITH PATIENT [facility] MEDICATION THERAPY MGT SERVICE(S) PROVIDED,A PHARMACIST,INDIV,FACE-T O-FACE W PATIENT,WITH ASSESS & INTERVENE IF PROVIDED;EA ADDITION 15 MINUTES (LIST SEPARATELY IN ADDITION TO CODE FOR PRIM SERVICE) [facility] INTENSIVE OUTPATIENT PSYCHIATRIC SERVICES, GEOLOGICAL TECHNICAL OFFICER [facility] UNLISTED SPECIAL SERVICE, PROCEDURE OR REPORT [facility] GROUP PSYCHOTHERAPY (OTHER THAN OF A MULTIPLE-FAMILY GROUP) [facility] PSYCHOTHERAPY, 30 MINUTES WITH PATIENT WHEN PERFORMED WITH AN EVALUATION AND MANAGEMENT SERVICE (LIST SEPARATELY IN ADDITION TO THE CODE FOR PRIMARY PROCEDURE) [facility] TELE ASSESS & MGT SRV PROV QUAL NONPHYS HLTH CARE PRO TO EST PAT,PARENT,GUARD NOT ORIG REL ASSESS & MGT SRV PROV W/IN PREV 7 DAYS NOR LEAD ASSESS & MGT SRV/PX W/IN NXT 24 HR/SOON APT;5-10 MIN MED DIS [facility] INFECTIOUS AGENT ANTIGEN DETECTION BY IMMUNOASSAY WITH DIRECT OPTICAL (IE, VISUAL) OBSERVATION; STREPTOCOCCUS, GROUP A [facility] INTENSIVE OUTPATIENT PSYCHIATRIC SERVICES, GEOLOGICAL TECHNICAL OFFICER [facility] MEDICAL NUTRITION THERAPY; GROUP (2 OR MORE INDIVIDUAL(S)), EACH 30 MINUTES [facility] PSYCHOLOGICAL OR NEUROPSYCHOLOGICAL TEST ADMINISTRATION AND SCORING BY PHYSICIAN OR OTHER QUALIFIED HEALTH PROPERTY MANAGEMENT ACCOUNTANT, TWO OR MORE TESTS, ANY METHOD; FIRST 30 MINUTES [facility] INTENSIVE OUTPATIENT PSYCHIATRIC SERVICES, GEOLOGICAL TECHNICAL OFFICER [facility] UNLISTED SPECIAL SERVICE, PROCEDURE OR REPORT [facility] PSYCHOTHERAPY, 30 MINUTES WITH PATIENT WHEN PERFORMED WITH AN EVALUATION AND MANAGEMENT SERVICE (LIST SEPARATELY IN ADDITION TO THE CODE FOR PRIMARY PROCEDURE) DoD PSYCHOTHERAPY, 45 MINUTES WITH PATIENT DoD INTENSIVE OUTPATIENT PSYCHIATRIC SERVICES, GEOLOGICAL TECHNICAL OFFICER DoD INTENSIVE OUTPATIENT PSYCHIATRIC SERVICES, GEOLOGICAL TECHNICAL OFFICER DoD BRIEF EMOTIONAL/BEHAVIORAL ASSESSMENT (EG, DEPRESSION INVENTORY, ATTENTION-DEFICIT/HYPER ACTIVITY DISORDER [ADHD] SCALE), WITH SCORING AND DOCUMENTATION, PER STANDARDIZED INSTRUMENT Do[facility] PSYCHOTHERAPY, 45 MINUTES WITH PATIENT DoD UNLISTED SPECIAL SERVICE, PROCEDURE OR REPORT DoD PSYCHOTHERAPY, 30 MINUTES WITH PATIENT WHEN PERFORMED WITH AN EVALUATION AND MANAGEMENT SERVICE (LIST SEPARATELY IN ADDITION TO THE CODE FOR PRIMARY PROCEDURE) Do[facility] INTENSIVE OUTPATIENT PSYCHIATRIC SERVICES, GEOLOGICAL TECHNICAL OFFICER DoD PSYCHOTHERAPY, 45 MINUTES WITH PATIENT DoD INTENSIVE OUTPATIENT PSYCHIATRIC SERVICES, GEOLOGICAL TECHNICAL OFFICER Do[facility] PSYCHOTHERAPY, 60 MINUTES WITH PATIENT DoD PSYCHIATRIC EVALUATION OF HOSPITAL RECORDS, OTHER PSYCHIATRIC REPORTS, PSYCHOMETRIC AND/OR PROJECTIVE TESTS, AND OTHER ACCUMULATED DATA FOR MEDICALDIAGNOSTIC PURPOSES DoD INTENSIVE OUTPATIENT PSYCHIATRIC SERVICES, GEOLOGICAL TECHNICAL OFFICER [facility] ELECTROENCEPHALOGRAM (EEG); INCLUDING RECORDING AWAKE AND DROWSY CASE MANAGEMENT, EACH 15 MINUTES DoD UNLISTED SPECIAL SERVICE, PROCEDURE OR REPORT PSYCHOTHERAPY, 45 MINUTES WITH PATIENT WHEN PERFORMED WITH AN EVALUATION AND MANAGEMENT SERVICE (LIST SEPARATELY IN ADDITION TO THE CODE FOR PRIMARY PROCEDURE) DoD INTENSIVE OUTPATIENT PSYCHIATRIC SERVICES, GEOLOGICAL TECHNICAL OFFICER DoD INTENSIVE OUTPATIENT PSYCHIATRIC SERVICES, GEOLOGICAL TECHNICAL OFFICER DoD PSYCHOTHERAPY, 60 MINUTES WITH PATIENT DoD PSYCHIATRIC EVALUATION OF HOSPITAL RECORDS, OTHER PSYCHIATRIC REPORTS, PSYCHOMETRIC AND/OR PROJECTIVE TESTS, AND OTHER ACCUMULATED DATA FOR MEDICALDIAGNOSTIC PURPOSES DoD INTENSIVE OUTPATIENT PSYCHIATRIC SERVICES, GEOLOGICAL TECHNICAL OFFICER DoD INTENSIVE OUTPATIENT PSYCHIATRIC SERVICES, GEOLOGICAL TECHNICAL OFFICER DoD UNLISTED SPECIAL SERVICE, PROCEDURE OR REPORT DoD PSYCHOTHERAPY, 30 MINUTES WITH PATIENT WHEN PERFORMED WITH AN EVALUATION AND MANAGEMENT SERVICE (LIST SEPARATELY IN ADDITION TO THE CODE FOR PRIMARY PROCEDURE) DoD INTENSIVE OUTPATIENT PSYCHIATRIC SERVICES, GEOLOGICAL TECHNICAL OFFICER DoD PSYCHOTHERAPY, 30 MINUTES WITH PATIENT [facility] PSYCHOLOGICAL/NEUROPSYC HOLOGICAL TEST ADMIN &SCORING,PHYSICIAN/OTHE R QUALIFIED HEALTH PROPERTY MANAGEMENT ACCOUNTANT,TWO/MORE TESTS,ANY METHOD;EACH ADDITIONAL 30 MINUTES (LIST SEP IN ADD TO CODE FOR PRIMARY PROC) [facility] INTENSIVE OUTPATIENT PSYCHIATRIC SERVICES, GEOLOGICAL TECHNICAL OFFICER [facility] PSYCHOTHERAPY, 30 MINUTES WITH PATIENT [facility] PSYCHIATRIC EVALUATION OF HOSPITAL RECORDS, OTHER PSYCHIATRIC REPORTS, PSYCHOMETRIC AND/OR PROJECTIVE TESTS, AND OTHER ACCUMULATED DATA FOR MEDICALDIAGNOSTIC PURPOSES [facility] UNLISTED SPECIAL SERVICE, PROCEDURE OR REPORT [facility] COORDINATED CARE FEE, MAINTENANCE RATE [facility] PSYCHIATRIC DIAGNOSTIC EVALUATION [facility] GROUP PSYCHOTHERAPY [facility] INDIVIDUAL PSYCHOTHERAPY, BEHAVIORAL [facility] CASE MANAGEMENT, EACH 15 MINUTES [facility] CASE MANAGEMENT, EACH 15 MINUTES [facility] INFLUENZA VIRUS VACCINE, TRIVALENT (RIV3), DERIVED FROM RECOMBINANT DNA, HEMAGGLUTININ (PERRY) PROTEIN ONLY, PRESERVATIVE AND ANTIBIOTIC FREE, FOR INTRAMUSCULAR USE [facility] Social History Combined list of available smoking, tobacco, and other social history from [facility] [employer] and [facility] facilities. Social History Type Response Date Comment Sourc e Tobacco smoking status [facility] NEVER USED 08/02/2019 [facility] This section is an empty social history section. [facility]
== END 2024-12-19 01:28 | disposition home or self-care (01) ==
LOC: ANHED 12-19 01:08
PROVIDERS: Emergency Provider Student in an Organized Health Care Education/Training Program
DX: R07.89 Other chest pain (principal); R94.31 Abnormal electrocardiogram [ECG] [EKG]
CPT/HCPCS: 36415; 71045; 80053; 83690; 84484; 85025; 85610; 85730; 93005; 99284